=== PATIENT | female | born 1940 | race Caucasian/White ===

== ENCOUNTER 2019-10-09 12:41 | Emergency (ER) | payer MEDICARE, OTHER ==
[2019-10-09] MEDS ORDERED: Sodium Chloride 0.9% 1000 ML 1,000 ML IV SCH (13:15)
[2019-10-09 13:31] LABS: Absolute Neutrophil Ct (ANC) 2.59 (1.4-6.9); BASOPHIL % 0.2 % (0.0-0.4); Basophil (Absolute #) 0.01 (0-0.4); Eosinophil % 0.6 % (0.00-5.0); Eosinophil (Absolute #) 0.03 (0-0.5); Hematocrit 37.1 % (35-47); Hemoglobin 11.9 gm/dl (12.0-16.0); Lymphocyte (Absolute #) 1.58 (1.0-4.6); Lymphocytes % 33.9 % (24.0-44.0); Mean Cell Volume 97.6 fl (78-100); Mean Corpuscular Hemoglobin 31.3 pg (26-32); Mean Corpuscular Hgb Concent. 32.1 g/dl (32-36); Mean Platelet Volume 9.6 fl (7.5-11.0); Monocyte (Absolute #) 0.45 (0.0-1.3); Monocytes % 9.7 % (0.0-12.0); Neutrophil % 55.6 % (36.0-66.0); Platelet Count 243 K/mm3 (150-450); Red Cell Distribution Width 12.5 % (11.5-14.0); White Blood Count 4.7 K/mm3 (4.0-10.5)
[2019-10-09] MEDS ORDERED: Sodium Chloride 0.9% 1000 ML 1,000 ML ONE (13:37)
[2019-10-09 13:38] LABS: INR 1.04 (0.8-3.0); PROTIME 11.8 SECONDS (9.95-12.35)
[2019-10-09 13:42] LABS: ALBUMIN 4.3 g/dL (3.5-5.0); ALKALINE PHOSPHATASE 58 U/L (38-126); AMYLASE 86 U/L (30-110); ANION GAP 12.4 MEQ/L (5-15); BLOOD UREA NITROGEN 16 mg/dL (7-17); CHLORIDE 104 mmol/L (98-107); Calcium 9.7 mg/dL (8.4-10.2); Carbon Dioxide 28 mmol/L (22-30); Glucose 117 mg/dL (74-106); LIPASE 197 U/L (23-300); Potassium 4.4 mmol/L (3.5-5.1); SGOT/AST 39 U/L (14-36); SGPT/ALT 24 U/L (0-35); SODIUM 141 mmol/L (137-145); Total Protein 8.2 g/dL (6.3-8.2)
--- NOTE | 2019-10-09 13:55 | XRAY ---
Indication: Weakness, loss of appetite, and unwanted weight loss. Left breast cancer. Comparison: Chest exam June 24, 2018. 2 views of the abdomen demonstrates nonspecific nonobstructed bowel gas pattern. Solid organs unremarkable. Osseous structures intact with mild osteopenia, and mild multilevel lumbar degenerative spondylosis. Single frontal chest again demonstrates normal heart and lungs with incidental right hilar/right lung calcified granulomas. New right dual lead pacemaker without complications. Bony thorax intact again with mild osteopenia, degenerative changes, and left mastectomy. Impression: 1. Nonacute nonobstructed abdomen. 2. Nonacute 1 view chest with chronic features.
[2019-10-09 15:02] LABS: INFLUENZA A POSITIVE (NEGATIVE); INFLUENZA B NEGATIVE (NEGATIVE); RESPIRATORY SYNCTIAL VIRUS NEGATIVE (Negative)
[2019-10-09 15:10] LABS: Appearance CLEAR (CLEAR); Bacteria RARE /HPF (NEGATIVE); Bilirubin NEGATIVE (NEGATIVE); Blood SMALL Ery/ul (0-5); Glucose NEGATIVE (NEGATIVE); Ketones NEGATIVE (NEGATIVE); Leukocyte Esterase SMALL (NEGATIVE); Nitrite NEGATIVE (NEGATIVE); Protein,Urine Dip NEGATIVE (Negative); RBC 0-2 /HPF (0-2); Specific Gravity 1.006 (1.005-1.025); Urobilinogen NEGATIVE mg/dL (0-1)
--- NOTE | 2019-10-09 16:39 | XRAY ---
Indication: Weakness, loss of appetite, on wanted weight loss, and elevated d-dimer. Multiple contiguous axial images obtained through the chest using 80 cc of Isovue-370 contrast and PE protocol. Comparison: July 09, 2018. There is good opacification of the pulmonary arteries to include the lobar and segmental branches. Again no filling defect or pulmonary embolus. Heart is not enlarged. New right-sided dual lead pacemaker. Aorta is normal in course and caliber. Stable chunky mediastinal and right hilar calcified nodes. No pathologic mediastinal or hilar lymphadenopathy. Lungs again demonstrates right posterior gutter calcified granuloma. No suspicious pulmonary mass, infiltrate, or effusion. Bony thorax intact again with flowing osteophytes throughout the spine. Stable left mastectomy with intact breast implant. Limited upper abdomen again demonstrates fatty liver and hepatic/splenic calcified granulomas. Impression: 1. Again negative for pulmonary embolus. 2. New right-sided pacemaker/leads without complications. 3. No new/acute cardiopulmonary abnormalities. 4. Stable fatty liver and evidence for old granulomatous disease.
--- NOTE | 2019-10-09 17:04 | ERPHSYRPT ---
- History of Present Illness Time Seen by Provider: 10/09/19 13:00 Patient Subjective Stated Complaint: pt here for weakness, she has not felt well for a week, she has cough, loose stools, not eatng well Triage Nursing Assessment: pt alert, arrived per wc, assist of one to get to bed , abd soft, no edema noted Physician History: patient is a 79-year-old female who presents with a general complaint of weakness this started last week with a cough couple of loose stools she does have a pacemaker and a history of breast cancer but really him paucity of other symptoms. Timing/Duration: week(s) (1), sudden Severity: moderate Associated Symptoms: malaise, weakness Allergies/Adverse Reactions: No Known Drug Allergies Allergy (Verified 10/09/19 12:59) Home Medications: Buspirone HCl 5 mg BID 10/09/19 [History] Lisinopril [Prinivil] 5 mg DAILY 10/09/19 [History] Hx Influenza Vaccination/Date Given: Yes Hx Pneumococcal Vaccination/Date Given: No Immunizations Up to Date: Yes - Review of Systems Constitutional: Weakness, No Fever, No Chills Eyes: No Symptoms Ears, Nose, & Throat: No Symptoms Respiratory: No Cough, No Dyspnea Cardiac: No Chest Pain, No Edema, No Syncope Abdominal/Gastrointestinal: No Abdominal Pain, No Nausea, No Vomiting, No Diarrhea Genitourinary Symptoms: No Dysuria Musculoskeletal: No Back Pain, No Neck Pain Skin: No Rash Neurological: No Dizziness, No Focal Weakness, No Sensory Changes Psychological: No Symptoms Endocrine: No Symptoms All Other Systems: Reviewed and Negative - Past Medical History Pertinent Past Medical History: Yes Neurological History: No Pertinent History ENT History: No Pertinent History Cardiac History: No Pertinent History Respiratory History: No Pertinent History Endocrine Medical History: Other Musculoskeletal History: Osteoarthritis GI Medical History: No Pertinent History History: No Pertinent History Psycho-Social History: No Pertinent History Female Reproductive Disorders: No Pertinent History Other Medical History: KATELIN BREAST CANCER WITH LEFT MASTECTOMY. - Past Surgical History Past Surgical History: Yes Neuro Surgical History: No Pertinent History Cardiac: No Pertinent History Respiratory: No Pertinent History Gastrointestinal: No Pertinent History Genitourinary: No Pertinent History Musculoskeletal: No Pertinent History Female Surgical History: Lumpectomy, Mastectomy, Other Other Surgical History: cataract - Social History Smoking Status: Never smoker Exposure to second hand smoke: No Drug Use: none Patient Lives Alone: No - Female History Hx Last Menstrual Period: post Hx Now: No - Nursing Vital Signs Nursing Vital Signs: Initial Vital Signs Temperature 97.0 F 10/09/19 12:51 Pulse Rate 61 10/09/19 12:51 Respiratory Rate 16 10/09/19 12:51 Blood Pressure 143/77 10/09/19 12:51 O2 Sat by Pulse Oximetry 99 10/09/19 12:51 Pain Scale Pain Intensity 0 - Physical Exam General Appearance: mild distress, alert, lethargy Eye Exam: PERRL/EOMI, eyes nml inspection Ears, Nose, Throat Exam: normal ENT inspection, TMs normal, pharynx normal, moist mucous membranes Neck Exam: normal inspection, non-tender, supple, full range of motion Respiratory Exam: normal breath sounds, lungs clear, No respiratory distress Cardiovascular Exam: regular rate/rhythm, normal heart sounds, normal peripheral pulses Gastrointestinal/Abdomen Exam: soft, normal bowel sounds, No tenderness, No mass Back Exam: normal inspection, normal range of motion, No CVA tenderness, No vertebral tenderness Extremity Exam: normal inspection, normal range of motion, pelvis stable Neurologic Exam: alert, oriented x 3, cooperative, normal mood/affect, nml cerebellar function, nml station & gait, sensation nml, motor weakness, No motor deficits Skin Exam: normal color, warm, dry, No rash Lymphatic Exam: No adenopathy SpO2: 99 - Course EKG Interpreted by Me: Other (EKG is a paced rhythm) - CT Exams Chest CT Interpretation: Negative Ordered Tests: Active Orders 24 hr Category Date Time Status EKG-ER Only STAT Care 10/09/19 13:11 Active IV Insertion STAT Care 10/09/19 13:11 Active Orthostatic Vital Signs STAT Care 10/09/19 13:16 Active CHEST WITH CONTRAST [CT] Stat Exams 10/09/19 14:49 Completed OBSTR/ACUTE ABDOMEN SERIES Stat Exams 10/09/19 13:12 Completed AMYLASE Stat Lab 10/09/19 13:00 Completed BLOOD CULTURE Stat Lab 10/09/19 14:00 Received CBC W DIFF Stat Lab 10/09/19 13:00 Completed CMP Stat Lab 10/09/19 13:00 Completed CULTURE,URINE Stat Lab 10/09/19 14:56 Received D-DIMER QUANTITATIVE Stat Lab 10/09/19 13:00 Completed LIPASE Stat Lab 10/09/19 13:00 Completed Lactic Acid Stat Lab 10/09/19 13:24 Completed PROTIME WITH INR Stat Lab 10/09/19 13:00 Completed TROPONIN Q3H Lab 10/09/19 13:00 Completed TROPONIN Q3H Lab 10/09/19 16:25 Received TROPONIN Q3H Lab 10/09/19 19:15 Ordered TROPONIN Q3H Lab 10/09/19 22:15 Ordered TROPONIN Q3H Lab 10/10/19 01:15 Ordered UA W/RFX UR CULTURE Stat Lab 10/09/19 14:56 Completed Medication Summary Generic Name Dose Route Start Last Admin Trade Name Freq PRN Reason Stop Dose Admin Sodium Chloride 1,000 mls @ 100 mls/hr 10/09/19 13:15 10/09/19 13:39 Sodium Chloride 0.9% 1000 Ml IV 11/08/19 13:14 100 mls/hr .Q10H PRABHU Administration Lab/Rad Data: Laboratory Result Diagrams 10/09/19 13:00 10/09/19 13:00 Laboratory Results 10/09/19 10/09/19 10/09/19 Range/Units 14:56 14:00 13:24 WBC (4.0-10.5) K/mm3 RBC (4.1-5.4) M/mm3 Hgb (12.0-16.0) gm/dl Hct (35-47) % MCV (78-100) fl MCH (26-32) pg MCHC (32-36) g/dl RDW (11.5-14.0) % Plt Count (150-450) K/mm3 MPV (7.5-11.0) fl Gran % (36.0-66.0) % Eos # (Auto) (0-0.5) Absolute Lymphs (auto) (1.0-4.6) Absolute Monos (auto) (0.0-1.3) Lymphocytes % (24.0-44.0) % Monocytes % (0.0-12.0) % Eosinophils % (0.00-5.0) % Basophils % (0.0-0.4) % Absolute Granulocytes (1.4-6.9) Basophils # (0-0.4) PT (9.95-12.35) SECONDS INR (0.8-3.0) D-Dimer (215-500) ng/mL Sodium (137-145) mmol/L Potassium (3.5-5.1) mmol/L Chloride (98-107) mmol/L Carbon Dioxide (22-30) mmol/L Anion Gap (5-15) MEQ/L BUN (7-17) mg/dL Creatinine (0.52-1.04) mg/dL Estimated GFR ML/MIN Glucose (74-106) mg/dL Lactic Acid 0.8 (0.4-2.0) Calcium (8.4-10.2) mg/dL Total Bilirubin (0.2-1.3) mg/dL AST (14-36) U/L ALT (0-35) U/L Alkaline Phosphatase (38-126) U/L Troponin I (0.000-0.034) ng/mL Serum Total Protein (6.3-8.2) g/dL Albumin (3.5-5.0) g/dL Amylase (30-110) U/L Lipase (23-300) U/L Urine Color STRAW (YELLOW) Urine Appearance CLEAR (CLEAR) Urine pH 7.0 (5-6) Ur Specific [place] 1.006 (1.005-1.025) Urine Protein NEGATIVE (Negative) Urine Ketones NEGATIVE (NEGATIVE) Urine Blood SMALL (0-5) Aguilar/ul Urine Nitrite NEGATIVE (NEGATIVE) Urine Bilirubin NEGATIVE (NEGATIVE) Urine Urobilinogen NEGATIVE (0-1) mg/dL Ur Leukocyte Esterase SMALL (NEGATIVE) Urine WBC (Auto) 6-10 (0-5) /HPF Urine RBC (Auto) 0-2 (0-2) /HPF U Epithel Cells (Auto) NONE (FEW) /HPF Urine Bacteria (Auto) RARE (NEGATIVE) /HPF Urine Culture Reflexed ORDERED SEPARATELY (NO) Urine Glucose NEGATIVE (NEGATIVE) mg/dL Influenza Type A Ag POSITIVE (NEGATIVE) Influenza Type B Ag NEGATIVE (NEGATIVE) RSV (PCR) NEGATIVE (Negative) 10/09/19 10/09/19 10/09/19 Range/Units 13:00 13:00 13:00 WBC (4.0-10.5) K/mm3 RBC (4.1-5.4) M/mm3 Hgb (12.0-16.0) gm/dl Hct (35-47) % MCV (78-100) fl MCH (26-32) pg MCHC (32-36) g/dl RDW (11.5-14.0) % Plt Count (150-450) K/mm3 MPV (7.5-11.0) fl Gran % (36.0-66.0) % Eos # (Auto) (0-0.5) Absolute Lymphs (auto) (1.0-4.6) Absolute Monos (auto) (0.0-1.3) Lymphocytes % (24.0-44.0) % Monocytes % (0.0-12.0) % Eosinophils % (0.00-5.0) % Basophils % (0.0-0.4) % Absolute Granulocytes (1.4-6.9) Basophils # (0-0.4) PT 11.8 (9.95-12.35) SECONDS INR 1.04 (0.8-3.0) D-Dimer 651 H* (215-500) ng/mL Sodium 141 (137-145) mmol/L Potassium 4.4 (3.5-5.1) mmol/L Chloride 104 (98-107) mmol/L Carbon Dioxide 28 (22-30) mmol/L Anion Gap 12.4 (5-15) MEQ/L BUN 16 (7-17) mg/dL Creatinine 0.80 (0.52-1.04) mg/dL Estimated GFR > 60.0 ML/MIN Glucose 117 H (74-106) mg/dL Lactic Acid (0.4-2.0) Calcium 9.7 (8.4-10.2) mg/dL Total Bilirubin 0.70 (0.2-1.3) mg/dL AST 39 H (14-36) U/L ALT 24 (0-35) U/L Alkaline Phosphatase 58 (38-126) U/L Troponin I < 0.012 (0.000-0.034) ng/mL Serum Total Protein 8.2 (6.3-8.2) g/dL Albumin 4.3 (3.5-5.0) g/dL Amylase 86 (30-110) U/L Lipase 197 (23-300) U/L Urine Color (YELLOW) Urine Appearance (CLEAR) Urine pH (5-6) Ur Specific [place] (1.005-1.025) Urine Protein (Negative) Urine Ketones (NEGATIVE) Urine Blood (0-5) Aguilar/ul Urine Nitrite (NEGATIVE) Urine Bilirubin (NEGATIVE) Urine Urobilinogen (0-1) mg/dL Ur Leukocyte Esterase (NEGATIVE) Urine WBC (Auto) (0-5) /HPF Urine RBC (Auto) (0-2) /HPF U Epithel Cells (Auto) (FEW) /HPF Urine Bacteria (Auto) (NEGATIVE) /HPF Urine Culture Reflexed (NO) Urine Glucose (NEGATIVE) mg/dL Influenza Type A Ag (NEGATIVE) Influenza Type B Ag (NEGATIVE) RSV (PCR) (Negative) 10/09/19 Range/Units 13:00 WBC 4.7 (4.0-10.5) K/mm3 RBC 3.80 L (4.1-5.4) M/mm3 Hgb 11.9 L (12.0-16.0) gm/dl Hct 37.1 (35-47) % MCV 97.6 (78-100) fl MCH 31.3 (26-32) pg MCHC 32.1 (32-36) g/dl RDW 12.5 (11.5-14.0) % Plt Count 243 (150-450) K/mm3 MPV 9.6 H (7.5-11.0) fl Gran % 55.6 (36.0-66.0) % Eos # (Auto) 0.03 (0-0.5) Absolute Lymphs (auto) 1.58 (1.0-4.6) Absolute Monos (auto) 0.45 (0.0-1.3) Lymphocytes % 33.9 (24.0-44.0) % Monocytes % 9.7 (0.0-12.0) % Eosinophils % 0.6 (0.00-5.0) % Basophils % 0.2 (0.0-0.4) % Absolute Granulocytes 2.59 (1.4-6.9) Basophils # 0.01 (0-0.4) PT (9.95-12.35) SECONDS INR (0.8-3.0) D-Dimer (215-500) ng/mL Sodium (137-145) mmol/L Potassium (3.5-5.1) mmol/L Chloride (98-107) mmol/L Carbon Dioxide (22-30) mmol/L Anion Gap (5-15) MEQ/L BUN (7-17) mg/dL Creatinine (0.52-1.04) mg/dL Estimated GFR ML/MIN Glucose (74-106) mg/dL Lactic Acid (0.4-2.0) Calcium (8.4-10.2) mg/dL Total Bilirubin (0.2-1.3) mg/dL AST (14-36) U/L ALT (0-35) U/L Alkaline Phosphatase (38-126) U/L Troponin I (0.000-0.034) ng/mL Serum Total Protein (6.3-8.2) g/dL Albumin (3.5-5.0) g/dL Amylase (30-110) U/L Lipase (23-300) U/L Urine Color (YELLOW) Urine Appearance (CLEAR) Urine pH (5-6) Ur Specific [place] (1.005-1.025) Urine Protein (Negative) Urine Ketones (NEGATIVE) Urine Blood (0-5) Aguilar/ul Urine Nitrite (NEGATIVE) Urine Bilirubin (NEGATIVE) Urine Urobilinogen (0-1) mg/dL Ur Leukocyte Esterase (NEGATIVE) Urine WBC (Auto) (0-5) /HPF Urine RBC (Auto) (0-2) /HPF U Epithel Cells (Auto) (FEW) /HPF Urine Bacteria (Auto) (NEGATIVE) /HPF Urine Culture Reflexed (NO) Urine Glucose (NEGATIVE) mg/dL Influenza Type A Ag (NEGATIVE) Influenza Type B Ag (NEGATIVE) RSV (PCR) (Negative) - Progress Progress: unchanged - Departure Departure Disposition: Home Clinical Impression: Influenza A Condition: Stable Critical Care Time: No Referrals: JORGE THORNTON [Primary Care Provider] - Prescriptions: Oseltamivir 75 mg [Tamiflu 75MG Capsule] 75 mg PO BID #10 cap
[2019-10-09 17:12] VITALS: BP 166/74; O2SAT 98
[2019-10-09 17:24] VITALS: PULSE 80
== END 2019-10-09 17:22 | disposition home or self-care (01) ==
LOC: ED 12:41
DX: J09.X2 Influenza due to identified novel influenza A virus with other respiratory manifestations (principal); Z95.0 Presence of cardiac pacemaker; Z79.899 Other long term (current) drug therapy
CPT/HCPCS: 36000; 36415; 71260; 74022; 80053; 81001; 82150; 83605; 83690; 84484; 85025; 85379; 85610; 87040; 87086; 87631; 93005; 96360; 96374; 99284

== ENCOUNTER 2019-10-12 11:19 | Observation (INO) | payer MEDICARE, OTHER ==
--- NOTE | 2019-10-12 11:23 | ERPHSYRPT ---
- History of Present Illness Time Seen by Provider: 10/12/19 11:23 Source: patient, family Exam Limitations: no limitations Physician History: 79 y/o white female dx 3 days ago with influenza a. since that dx, pt has complained of weakness. no n/v/d. denies cough. denies fever. no abd pain, no soa, no cp. pt not eating or drinking well. Timing/Duration: day(s) (3) Cough Quality/Degree: no cough Possible Cause: no prior episodes Associated Symptoms: No chest pain/soreness, No cough, No dizziness, No headache , No lightheadedness, No muscle aches, No shortness of breath Allergies/Adverse Reactions: No Known Drug Allergies Allergy (Verified 10/09/19 12:59) Home Medications: Buspirone HCl 5 mg BID 10/09/19 [History] lisinopriL [Prinivil] 5 mg PO DAILY 10/09/19 [History] Hx Influenza Vaccination/Date Given: Yes Hx Pneumococcal Vaccination/Date Given: No - Review of Systems Constitutional: Weakness Eyes: No Symptoms Ears, Nose, & Throat: No Symptoms Respiratory: No Symptoms Cardiac: No Symptoms Abdominal/Gastrointestinal: No Symptoms Genitourinary Symptoms: No Symptoms Musculoskeletal: No Symptoms Neurological: No Symptoms Psychological: No Symptoms Endocrine: No Symptoms Hematologic/Lymphatic: No Symptoms Immunological/Allergic: No Symptoms All Other Systems: Reviewed and Negative - Past Medical History Pertinent Past Medical History: Yes Neurological History: No Pertinent History ENT History: No Pertinent History Cardiac History: No Pertinent History Respiratory History: No Pertinent History Endocrine Medical History: Other Musculoskeletal History: Osteoarthritis GI Medical History: No Pertinent History History: No Pertinent History Psycho-Social History: No Pertinent History Female Reproductive Disorders: No Pertinent History Other Medical History: KATELIN BREAST CANCER WITH LEFT MASTECTOMY. - Past Surgical History Past Surgical History: Yes Neuro Surgical History: No Pertinent History Cardiac: No Pertinent History Respiratory: No Pertinent History Gastrointestinal: No Pertinent History Genitourinary: No Pertinent History Musculoskeletal: No Pertinent History Female Surgical History: Lumpectomy, Mastectomy, Other Other Surgical History: cataract - Social History Smoking Status: Never smoker Exposure to second hand smoke: No Drug Use: none Patient Lives Alone: No - Nursing Vital Signs Nursing Vital Signs: Initial Vital Signs Temperature 97.7 F 10/12/19 11:43 Pulse Rate 68 01/06/20 11:43 Respiratory Rate 18 10/12/19 11:43 Blood Pressure 170/75 10/12/19 11:43 O2 Sat by Pulse Oximetry 98 10/12/19 11:43 Pain Scale Pain Intensity 0 - Physical Exam General Appearance: no apparent distress, alert, anxiety Eye Exam: PERRL/EOMI, eyes nml inspection Ears, Nose, Throat Exam: dry mucous membranes Neck Exam: normal inspection, non-tender, supple, full range of motion Respiratory Exam: normal breath sounds, lungs clear, airway intact, No chest tenderness, No respiratory distress Cardiovascular Exam: regular rate/rhythm, normal heart sounds, normal peripheral pulses Gastrointestinal/Abdomen Exam: soft, normal bowel sounds, No tenderness Pelvic Exam: not done Rectal Exam: not done Extremity Exam: normal inspection, normal range of motion, No pelvis stable Neurologic Exam: alert, oriented x 3, cooperative, mailroom associate II-XII nml as tested Skin Exam: normal color, warm, dry Lymphatic Exam: No adenopathy SpO2 Interpretation: normal O2 Delivery: Room Air - Course Nursing assessment & vital signs reviewed: Yes Ordered Tests: Active Orders 24 hr Category Date Time Status IV Insertion STAT Care 10/12/19 12:01 Active AMYLASE Stat Lab 10/12/19 12:09 Completed CBC W DIFF Stat Lab 10/12/19 12:09 Completed CMP Stat Lab 10/12/19 12:09 Completed LIPASE Stat Lab 10/12/19 12:09 Completed Lactic Acid Stat Lab 10/12/19 12:10 Completed [place] Screen Stat Lab 10/12/19 12:09 Completed UA W/RFX UR CULTURE Stat Lab 10/12/19 12:02 Completed Transfer Order Routine Transfer 10/12/19 Ordered Medication Summary Discontinued Medications Generic Name Dose Route Start Last Admin Trade Name Citlali PRN Reason Stop Dose Admin Sodium Chloride 1,000 mls @ 999 mls/hr 10/12/19 12:01 10/12/19 13:23 Sodium Chloride 0.9% 1000 Ml IV 10/12/19 13:01 Infused .Q1H1M STA Infusion Sodium Chloride Confirm 10/12/19 12:05 Sodium Chloride 0.9% 1000 Ml Administered 10/12/19 12:06 Dose 1,000 mls @ ud .ROUTE .STK-MED ONE Lab/Rad Data: Laboratory Result Diagrams 10/12/19 12:09 10/12/19 12:09 Laboratory Results 10/12/19 10/12/19 10/12/19 Range/Units 12:10 12:09 12:09 WBC (4.0-10.5) K/mm3 RBC (4.1-5.4) M/mm3 Hgb (12.0-16.0) gm/dl Hct (35-47) % MCV (78-100) fl MCH (26-32) pg MCHC (32-36) g/dl RDW (11.5-14.0) % Plt Count (150-450) K/mm3 MPV (7.5-11.0) fl Gran % (36.0-66.0) % Eos # (Auto) (0-0.5) Absolute Lymphs (auto) (1.0-4.6) Absolute Monos (auto) (0.0-1.3) Lymphocytes % (24.0-44.0) % Monocytes % (0.0-12.0) % Eosinophils % (0.00-5.0) % Basophils % (0.0-0.4) % Absolute Granulocytes (1.4-6.9) Basophils # (0-0.4) Sodium 140 (137-145) mmol/L Potassium 4.4 (3.5-5.1) mmol/L Chloride 103 (98-107) mmol/L Carbon Dioxide 30 (22-30) mmol/L Anion Gap 11.1 (5-15) MEQ/L BUN 15 (7-17) mg/dL Creatinine 0.86 (0.52-1.04) mg/dL Estimated GFR > 60.0 ML/MIN Glucose 116 H (74-106) mg/dL Lactic Acid 0.9 (0.4-2.0) Calcium 10.3 H (8.4-10.2) mg/dL Total Bilirubin 0.80 (0.2-1.3) mg/dL AST 39 H (14-36) U/L ALT 20 (0-35) U/L Alkaline Phosphatase 70 (38-126) U/L Serum Total Protein 8.8 H (6.3-8.2) g/dL Albumin 4.7 (3.5-5.0) g/dL Amylase 103 (30-110) U/L Lipase 174 (23-300) U/L Urine Color (YELLOW) Urine Appearance (CLEAR) Urine pH (5-6) Ur Specific [place] (1.005-1.025) Urine Protein (Negative) Urine Ketones (NEGATIVE) Urine Blood (0-5) Aguilar/ul Urine Nitrite (NEGATIVE) Urine Bilirubin (NEGATIVE) Urine Urobilinogen (0-1) mg/dL Ur Leukocyte Esterase (NEGATIVE) Urine WBC (Auto) (0-5) /HPF Urine RBC (Auto) (0-2) /HPF U Epithel Cells (Auto) (FEW) /HPF Urine Bacteria (Auto) (NEGATIVE) /HPF Urine Culture Reflexed (NO) Urine Glucose (NEGATIVE) mg/dL Monoscreen NEGATIVE (Negative) 10/12/19 10/12/19 Range/Units 12:09 12:02 WBC 6.9 (4.0-10.5) K/mm3 RBC 3.92 L (4.1-5.4) M/mm3 Hgb 12.2 (12.0-16.0) gm/dl Hct 37.8 (35-47) % MCV 96.4 (78-100) fl MCH 31.1 (26-32) pg MCHC 23.3 L (32-36) g/dl RDW 12.4 (11.5-14.0) % Plt Count 351 (150-450) K/mm3 MPV 9.5 (7.5-11.0) fl Gran % 71.0 H (36.0-66.0) % Eos # (Auto) 0.05 (0-0.5) Absolute Lymphs (auto) 1.44 (1.0-4.6) Absolute Monos (auto) 0.52 (0.0-1.3) Lymphocytes % 20.7 L (24.0-44.0) % Monocytes % 7.5 (0.0-12.0) % Eosinophils % 0.7 (0.00-5.0) % Basophils % 0.1 (0.0-0.4) % Absolute Granulocytes 4.92 (1.4-6.9) Basophils # 0.01 (0-0.4) Sodium (137-145) mmol/L Potassium (3.5-5.1) mmol/L Chloride (98-107) mmol/L Carbon Dioxide (22-30) mmol/L Anion Gap (5-15) MEQ/L BUN (7-17) mg/dL Creatinine (0.52-1.04) mg/dL Estimated GFR ML/MIN Glucose (74-106) mg/dL Lactic Acid (0.4-2.0) Calcium (8.4-10.2) mg/dL Total Bilirubin (0.2-1.3) mg/dL AST (14-36) U/L ALT (0-35) U/L Alkaline Phosphatase (38-126) U/L Serum Total Protein (6.3-8.2) g/dL Albumin (3.5-5.0) g/dL Amylase (30-110) U/L Lipase (23-300) U/L Urine Color YELLOW (YELLOW) Urine Appearance CLEAR (CLEAR) Urine pH 6.0 (5-6) Ur Specific [place] 1.008 (1.005-1.025) Urine Protein NEGATIVE (Negative) Urine Ketones NEGATIVE (NEGATIVE) Urine Blood SMALL (0-5) Aguilar/ul Urine Nitrite NEGATIVE (NEGATIVE) Urine Bilirubin NEGATIVE (NEGATIVE) Urine Urobilinogen NEGATIVE (0-1) mg/dL Ur Leukocyte Esterase NEGATIVE (NEGATIVE) Urine WBC (Auto) 0-2 (0-5) /HPF Urine RBC (Auto) 0-2 (0-2) /HPF U Epithel Cells (Auto) NONE (FEW) /HPF Urine Bacteria (Auto) NONE (NEGATIVE) /HPF Urine Culture Reflexed NO (NO) Urine Glucose NEGATIVE (NEGATIVE) mg/dL Monoscreen (Negative) - Progress Progress: improved Air Movement: good Progress Note: 10/12/19 13:[address] givens. i reviewed pts hx, condition, lab results. place in obs. ivf recheck labs in morning Blood Culture(s) Obtained: No Antibiotics given: No Counseled pt/family regarding: lab results, diagnosis - Departure Departure Disposition: Home Clinical Impression: Weakness, Influenza A Condition: Stable Critical Care Time: No Referrals: JORGE GIVENS [Primary Care Provider] -
[2019-10-12] MEDS ORDERED: Sodium Chloride 0.9% 1000 ML 1,000 ML IV STA (12:01)
[2019-10-12] MEDS ORDERED: Sodium Chloride 0.9% 1000 ML 1,000 ML ONE (12:05)
[2019-10-12 12:29] LABS: ALBUMIN 4.7 g/dL (3.5-5.0); ALKALINE PHOSPHATASE 70 U/L (38-126); AMYLASE 103 U/L (30-110); ANION GAP 11.1 MEQ/L (5-15); BLOOD UREA NITROGEN 15 mg/dL (7-17); CHLORIDE 103 mmol/L (98-107); Calcium 10.3 mg/dL (8.4-10.2); Carbon Dioxide 30 mmol/L (22-30); Creatinine 1 0.86 mg/dL (0.52-1.04); Glucose 116 mg/dL (74-106); LIPASE 174 U/L (23-300); Potassium 4.4 mmol/L (3.5-5.1); SGOT/AST 39 U/L (14-36); SGPT/ALT 20 U/L (0-35); SODIUM 140 mmol/L (137-145); Total Protein 8.8 g/dL (6.3-8.2)
[2019-10-12 12:41] LABS: Hematocrit 37.8 % (35-47); Hemoglobin 12.2 gm/dl (12.0-16.0); Mean Cell Volume 96.4 fl (78-100); Mean Corpuscular Hemoglobin 31.1 pg (26-32); Mean Corpuscular Hgb Concent. 23.3 g/dl (32-36); Platelet Count 351 K/mm3 (150-450); Red Blood Count 3.92 M/mm3 (4.1-5.4); Red Cell Distribution Width 12.4 % (11.5-14.0); White Blood Count 6.9 K/mm3 (4.0-10.5)
[2019-10-12 12:42] LABS: Absolute Neutrophil Ct (ANC) 4.92 (1.4-6.9); BASOPHIL % 0.1 % (0.0-0.4); Basophil (Absolute #) 0.01 (0-0.4); Eosinophil % 0.7 % (0.00-5.0); Eosinophil (Absolute #) 0.05 (0-0.5); Lymphocyte (Absolute #) 1.44 (1.0-4.6); Lymphocytes % 20.7 % (24.0-44.0); Mean Platelet Volume 9.5 fl (7.5-11.0); Monocyte (Absolute #) 0.52 (0.0-1.3); Monocytes % 7.5 % (0.0-12.0)
[2019-10-12 13:06] LABS: Appearance CLEAR (CLEAR); Bilirubin NEGATIVE (NEGATIVE); Blood SMALL Ery/ul (0-5); Glucose NEGATIVE (NEGATIVE); Ketones NEGATIVE (NEGATIVE); Leukocyte Esterase NEGATIVE (NEGATIVE); Nitrite NEGATIVE (NEGATIVE); Protein,Urine Dip NEGATIVE (Negative); RBC 0-2 /HPF (0-2); Specific Gravity 1.008 (1.005-1.025); Urobilinogen NEGATIVE mg/dL (0-1); WBC 0-2 /HPF (0-5)
[2019-10-12] MEDS ORDERED: Zofran 4 MG/2 ML VIAL IV PRN (14:56)
[2019-10-12] MEDS ORDERED: TYLENOL 325 MG PO PRN (14:56)
[2019-10-12] MEDS: Sodium Chloride 0.9% 1000 ML 1,000 ML IV SCH (15:34)
[2019-10-13 05:51] LABS: Absolute Neutrophil Ct (ANC) 4.49 (1.4-6.9); BASOPHIL % 0.1 % (0.0-0.4); Basophil (Absolute #) 0.01 (0-0.4); Eosinophil (Absolute #) 0.07 (0-0.5); Hematocrit 31.3 % (35-47); Hemoglobin 10.1 gm/dl (12.0-16.0); Lymphocyte (Absolute #) 1.58 (1.0-4.6); Lymphocytes % 23.2 % (24.0-44.0); Mean Cell Volume 97.2 fl (78-100); Mean Corpuscular Hemoglobin 31.4 pg (26-32); Mean Corpuscular Hgb Concent. 32.3 g/dl (32-36); Mean Platelet Volume 9.5 fl (7.5-11.0); Monocyte (Absolute #) 0.67 (0.0-1.3); Monocytes % 9.8 % (0.0-12.0); Neutrophil % 65.9 % (36.0-66.0); Platelet Count 285 K/mm3 (150-450); Red Blood Count 3.22 M/mm3 (4.1-5.4); Red Cell Distribution Width 12.3 % (11.5-14.0); White Blood Count 6.8 K/mm3 (4.0-10.5)
[2019-10-13 06:07] LABS: ANION GAP 8.7 MEQ/L (5-15); BLOOD UREA NITROGEN 11 mg/dL (7-17); CHLORIDE 107 mmol/L (98-107); Calcium 9.4 mg/dL (8.4-10.2); Carbon Dioxide 27 mmol/L (22-30); Creatinine 1 0.72 mg/dL (0.52-1.04); Glucose 90 mg/dL (74-106); Potassium 3.6 mmol/L (3.5-5.1); SODIUM 139 mmol/L (137-145)
[2019-10-13] MEDS: Zestril 5 MG PO SCH (08:39)
[2019-10-13] MEDS: BUSPAR 5 MG PO SCH ×2 (08:39→20:38)
[2019-10-13] MEDS: Sodium Chloride 0.9% 1000 ML 1,000 ML IV SCH (08:40)
--- NOTE | 2019-10-13 08:56 | PCM.HP ---
History of Present Illness - Chief Complaint Chief Complaint: Weakness, influenza A History of Present Illness: is a 79 year old female pt of mine from [facility] with anxiety, HTN, hyperlipidemia, pacemaker, OA, hx breast cancer, and renal insufficiency who was admitted through the ER with flu A (diagnosed on 10/09/19 in ER) and weakness. Pt is a poor historian. She told me she became ill with the flu on Oct 01, never felt well after that, wasn't eating well at home and was weak. Denies having cough or fever; ROS is neg aside from weakness and some depression this week with feeling ill. She tells me she's feeling better this morning, eating well, and thinks she can go home. Per her chart, she was in the ER on 10/09/19 and tested positive for Flu A. KUB was non acute as was CTA of the chest (neg for PE as well). Family had called yesterday to say that pt was "lifeless" and unable to get out of bed by herself. Has not been eating well at home. Was brought to ER where labs were nonacute. UA nl, WBC nl, potassium and CO2 normal. CXR was not repeated yesterday. - Review of Systems Constitutional: Weakness, Weight Loss Psychological: Depression (over the past 1 wk) All Other Systems: Reviewed and Negative Medications & Allergies Home Medications: Home Medication List Buspirone HCl 10 mg PO BID 10/09/19 [History Confirmed 10/12/19] lisinopriL [Prinivil] 2.5 mg PO DAILY 10/09/19 [History Confirmed 10/12/19] Allergies/Adverse Reactions: Allergies Allergy/AdvReac Type Severity Reaction Status Date / Time No Known Drug Allergies Allergy Verified 10/12/19 15:06 - Past Medical History Past Medical History: Yes Neurological History: No Pertinent History ENT History: Cataracts Cardiac History: Hypertension Respiratory History: No Pertinent History Endocrine Medical History: Other Musculoskelatal History: Osteoarthritis GI Medical History: No Pertinent History History: No Pertinent History Pyscho-Social History: No Pertinent History Reproductive Disorders: Breast Cancer Comment: KATELIN BREAST CANCER WITH LEFT MASTECTOMY. - Female History Are you now?: No - Past Surgical History Past Surgical History: Yes Neuro Surgical History: No Pertinent History Cardiac History: Pacemaker Respiratory Surgery: No Pertinent History GI Surgical History: No Pertinent History Genitourinary Surgical Hx: No Pertinent History Musculskeletal Surgical Hx: No Pertinent History Female Surgical History: Lumpectomy, Mastectomy, Other Other Surgical History: cataract - Social History Smoking Status: Never smoker Exposure to second hand smoke: No Alcohol: None Drug Use: none - Physical Exam Vital Signs: Vital Signs - 24 hr Temp Pulse Resp BP Pulse Ox 10/13/19 07:37 98 F 86 20 166/81 95 10/13/19 07:35 18 10/13/19 04:00 97.4 F 70 20 170/76 98 10/13/19 00:00 97.2 F 67 18 176/80 99 10/12/19 23:59 20 10/12/19 20:00 98.4 F 68 20 182/86 98 10/12/19 16:00 96.9 F 67 18 158/69 98 10/12/19 15:11 96.9 F 67 18 158/69 98 10/12/19 14:04 66 18 149/74 96 10/12/19 11:43 97.7 F 68 18 170/75 98 General Appearance: no apparent distress, alert Neurologic Exam: cooperative Eye Exam: eyes nml inspection Ears, Nose, Throat Exam: moist mucous membranes Neck Exam: normal inspection, non-tender, No lymphadenopathy Respiratory Exam: normal breath sounds, lungs clear, No crackles/rales, No rhonchi, No wheezing Cardiovascular Exam: regular rate/rhythm, normal heart sounds, No murmur Gastrointestinal/Abdomen Exam: soft, normal bowel sounds, No tenderness, No distention, No mass, No guarding, No rebound Back Exam: normal inspection, No rash Extremity Exam: normal inspection, No pedal edema, No swelling Skin Exam: normal color, warm, dry, No rash Results - Labs Lab/Micro Results: Lab Results-Last 24 Hours 10/12/19 10/12/19 10/12/19 Range/Units 12:02 12:09 12:09 WBC 6.9 (4.0-10.5) K/mm3 RBC 3.92 L (4.1-5.4) M/mm3 Hgb 12.2 (12.0-16.0) gm/dl Hct 37.8 (35-47) % MCV 96.4 (78-100) fl MCH 31.1 (26-32) pg MCHC 23.3 L (32-36) g/dl RDW 12.4 (11.5-14.0) % Plt Count 351 (150-450) K/mm3 MPV 9.5 (7.5-11.0) fl Gran % 71.0 H (36.0-66.0) % Eos # (Auto) 0.05 (0-0.5) Absolute Lymphs (auto) 1.44 (1.0-4.6) Absolute Monos (auto) 0.52 (0.0-1.3) Lymphocytes % 20.7 L (24.0-44.0) % Monocytes % 7.5 (0.0-12.0) % Eosinophils % 0.7 (0.00-5.0) % Basophils % 0.1 (0.0-0.4) % Absolute Granulocytes 4.92 (1.4-6.9) Basophils # 0.01 (0-0.4) Sodium 140 (137-145) mmol/L Potassium 4.4 (3.5-5.1) mmol/L Chloride 103 (98-107) mmol/L Carbon Dioxide 30 (22-30) mmol/L Anion Gap 11.1 (5-15) MEQ/L BUN 15 (7-17) mg/dL Creatinine 0.86 (0.52-1.04) mg/dL Estimated GFR > 60.0 ML/MIN Glucose 116 H (74-106) mg/dL Lactic Acid (0.4-2.0) Calcium 10.3 H (8.4-10.2) mg/dL Total Bilirubin 0.80 (0.2-1.3) mg/dL AST 39 H (14-36) U/L ALT 20 (0-35) U/L Alkaline Phosphatase 70 (38-126) U/L Serum Total Protein 8.8 H (6.3-8.2) g/dL Albumin 4.7 (3.5-5.0) g/dL Amylase 103 (30-110) U/L Lipase 174 (23-300) U/L Urine Color YELLOW (YELLOW) Urine Appearance CLEAR (CLEAR) Urine pH 6.0 (5-6) Ur Specific [place] 1.008 (1.005-1.025) Urine Protein NEGATIVE (Negative) Urine Ketones NEGATIVE (NEGATIVE) Urine Blood SMALL (0-5) Aguilar/ul Urine Nitrite NEGATIVE (NEGATIVE) Urine Bilirubin NEGATIVE (NEGATIVE) Urine Urobilinogen NEGATIVE (0-1) mg/dL Ur Leukocyte Esterase NEGATIVE (NEGATIVE) Urine WBC (Auto) 0-2 (0-5) /HPF Urine RBC (Auto) 0-2 (0-2) /HPF U Epithel Cells (Auto) NONE (FEW) /HPF Urine Bacteria (Auto) NONE (NEGATIVE) /HPF Urine Culture Reflexed NO (NO) Urine Glucose NEGATIVE (NEGATIVE) mg/dL Monoscreen (Negative) 10/12/19 10/12/19 10/13/19 Range/Units 12:09 12:10 04:50 WBC 6.8 (4.0-10.5) K/mm3 RBC 3.22 L (4.1-5.4) M/mm3 Hgb 10.1 L (12.0-16.0) gm/dl Hct 31.3 L (35-47) % MCV 97.2 (78-100) fl MCH 31.4 (26-32) pg MCHC 32.3 (32-36) g/dl RDW 12.3 (11.5-14.0) % Plt Count 285 (150-450) K/mm3 MPV 9.5 (7.5-11.0) fl Gran % 65.9 (36.0-66.0) % Eos # (Auto) 0.07 (0-0.5) Absolute Lymphs (auto) 1.58 (1.0-4.6) Absolute Monos (auto) 0.67 (0.0-1.3) Lymphocytes % 23.2 L (24.0-44.0) % Monocytes % 9.8 (0.0-12.0) % Eosinophils % 1.0 (0.00-5.0) % Basophils % 0.1 (0.0-0.4) % Absolute Granulocytes 4.49 (1.4-6.9) Basophils # 0.01 (0-0.4) Sodium (137-145) mmol/L Potassium (3.5-5.1) mmol/L Chloride (98-107) mmol/L Carbon Dioxide (22-30) mmol/L Anion Gap (5-15) MEQ/L BUN (7-17) mg/dL Creatinine (0.52-1.04) mg/dL Estimated GFR ML/MIN Glucose (74-106) mg/dL Lactic Acid 0.9 (0.4-2.0) Calcium (8.4-10.2) mg/dL Total Bilirubin (0.2-1.3) mg/dL AST (14-36) U/L ALT (0-35) U/L Alkaline Phosphatase (38-126) U/L Serum Total Protein (6.3-8.2) g/dL Albumin (3.5-5.0) g/dL Amylase (30-110) U/L Lipase (23-300) U/L Urine Color (YELLOW) Urine Appearance (CLEAR) Urine pH (5-6) Ur Specific [place] (1.005-1.025) Urine Protein (Negative) Urine Ketones (NEGATIVE) Urine Blood (0-5) Aguilar/ul Urine Nitrite (NEGATIVE) Urine Bilirubin (NEGATIVE) Urine Urobilinogen (0-1) mg/dL Ur Leukocyte Esterase (NEGATIVE) Urine WBC (Auto) (0-5) /HPF Urine RBC (Auto) (0-2) /HPF U Epithel Cells (Auto) (FEW) /HPF Urine Bacteria (Auto) (NEGATIVE) /HPF Urine Culture Reflexed (NO) Urine Glucose (NEGATIVE) mg/dL Monoscreen NEGATIVE (Negative) 10/13/19 Range/Units 04:50 WBC (4.0-10.5) K/mm3 RBC (4.1-5.4) M/mm3 Hgb (12.0-16.0) gm/dl Hct (35-47) % MCV (78-100) fl MCH (26-32) pg MCHC (32-36) g/dl RDW (11.5-14.0) % Plt Count (150-450) K/mm3 MPV (7.5-11.0) fl Gran % (36.0-66.0) % Eos # (Auto) (0-0.5) Absolute Lymphs (auto) (1.0-4.6) Absolute Monos (auto) (0.0-1.3) Lymphocytes % (24.0-44.0) % Monocytes % (0.0-12.0) % Eosinophils % (0.00-5.0) % Basophils % (0.0-0.4) % Absolute Granulocytes (1.4-6.9) Basophils # (0-0.4) Sodium 139 (137-145) mmol/L Potassium 3.6 (3.5-5.1) mmol/L Chloride 107 (98-107) mmol/L Carbon Dioxide 27 (22-30) mmol/L Anion Gap 8.7 (5-15) MEQ/L BUN 11 (7-17) mg/dL Creatinine 0.72 (0.52-1.04) mg/dL Estimated GFR > 60.0 ML/MIN Glucose 90 (74-106) mg/dL Lactic Acid (0.4-2.0) Calcium 9.4 (8.4-10.2) mg/dL Total Bilirubin (0.2-1.3) mg/dL AST (14-36) U/L ALT (0-35) U/L Alkaline Phosphatase (38-126) U/L Serum Total Protein (6.3-8.2) g/dL Albumin (3.5-5.0) g/dL Amylase (30-110) U/L Lipase (23-300) U/L Urine Color (YELLOW) Urine Appearance (CLEAR) Urine pH (5-6) Ur Specific [place] (1.005-1.025) Urine Protein (Negative) Urine Ketones (NEGATIVE) Urine Blood (0-5) Aguilar/ul Urine Nitrite (NEGATIVE) Urine Bilirubin (NEGATIVE) Urine Urobilinogen (0-1) mg/dL Ur Leukocyte Esterase (NEGATIVE) Urine WBC (Auto) (0-5) /HPF Urine RBC (Auto) (0-2) /HPF U Epithel Cells (Auto) (FEW) /HPF Urine Bacteria (Auto) (NEGATIVE) /HPF Urine Culture Reflexed (NO) Urine Glucose (NEGATIVE) mg/dL Monoscreen (Negative) - Radiology Impressions Radiology Exams & Impressions: Radiology Procedures Category Date Time Status CHEST 2 VIEWS (PA AND LAT) Routine Exams 10/13/19 Ordered Assessment/Plan (1) Weakness Current Visit: Yes Status: Acute Assessment & Plan: PT to consult today. Labs are good. Pt is eating breakfast this morning. Will need to demonstrate increased strength and ability to do ADLs prior to discharge. Currently 1 assist in going to bathroom. Code(s): R53.1 - WEAKNESS (2) Influenza A Current Visit: Yes Status: Acute Assessment & Plan: recheck cxr Code(s): J10.1 - FLU DUE TO OTH IDENT INFLUENZA VIRUS W OTH RESP MANIFEST (3) Hypertension Current Visit: Yes Status: Acute Qualifiers: Hypertension type: essential hypertension Qualified Code(s): I10 - Essential (primary) hypertension Assessment & Plan: resume home meds Code(s): I10 - ESSENTIAL (PRIMARY) HYPERTENSION
[2019-10-13] MEDS ORDERED: APRESOLINE 20 MG/ML INJ IV PRN (09:07)
--- NOTE | 2019-10-13 09:12 | XRAY ---
Indication: Weakness. Fluid. Comparison: October 09, 2019. PA/lateral chest unchanged and remains clear. Heart is not enlarged again with mediastinal/hilar calcified nodes and right dual-lead pacemaker. No new/acute findings.
[2019-10-13] MEDS ORDERED: Ativan 1 MG PO PRN (20:31)
[2019-10-14 02:00] VITALS: O2SAT 97
[2019-10-14] MEDS: Sodium Chloride 0.9% 1000 ML 1,000 ML IV SCH (03:48)
[2019-10-14 08:42] VITALS: BP 128/60; PULSE 60
--- NOTE | 2019-10-14 08:52 | PCM.DS ---
Discharge Summary Date of Admission: 10/12/19 14:44 Admitting Physician: JORGE THORNTON Primary Care Provider: JORGE THORNTON Allergies Allergies No Known Drug Allergies Allergy (Verified 10/12/19 15:06) Hospital Summary - Hospital Course Hospital Course: is a 79 year old female pt of mine from [facility] with anxiety, HTN, hyperlipidemia, pacemaker, OA, hx breast cancer, and renal insufficiency who was admitted through the ER with flu A (diagnosed on 10/09/19 in ER) and weakness. She became ill on Oct 01, never felt well after that, wasn't eating well at home and was weak. d In the ER labs were nonacute. UA nl, WBC nl, potassium and CO2 normal. CXR was also nonacute. She has been out of bed with standby and has been doing "as well as she was at home" per her daughter at bedside. Eating more than she was at home. Last night she was very anxious and shaky, required ativan x 1. Her BP was > 200 systolic and she received hydralazine IV. This morning she was sleeping very soundly, seems a little disoriented, but if she becomes oriented, is doing well walking and eating then she can go home today. - Vitals & Intake/Output Vital Signs: Vital Signs Temperature 97.4 F 10/14/19 08:00 Pulse Rate 60 10/14/19 08:00 Respiratory Rate 18 10/14/19 08:00 Blood Pressure 128/60 10/14/19 08:00 O2 Sat by Pulse Oximetry 97 10/14/19 08:00 Intake & Output: Intake & Output 10/11/19 10/12/19 10/13/19 10/14/19 11:59 11:59 11:59 11:59 Intake Total 1982 1999 Output Total 1199 2100 Balance 783 -100 Weight 58.967 kg 59.5 kg - Lab Result Diagrams: 10/13/19 04:50 10/13/19 04:50 - Radiology Exams Ordered Rad Exams-Entire Visit: Radiology Procedures Category Date Time Status CHEST 2 VIEWS (PA AND LAT) Routine Exams 10/13/19 08:54 Completed - Procedures and Test Procedures and Tests throughout Hospitalization: Therapy Orders & Screens 10/13/19 08:50 PT Eval & Treat ( Order) ROUTINE Reason for Eval:: weakness since Narcsia; Flu A + 4d ago Diagnosis: Weakness, influenza A Discharge Exam General Appearance: no apparent distress, alert Neurologic Exam: cooperative, disoriented Eye Exam: eyes nml inspection Neck Exam: normal inspection Respiratory Exam: normal breath sounds, lungs clear, No crackles/rales, No rhonchi, No wheezing Cardiovascular Exam: regular rate/rhythm, normal heart sounds, No murmur Gastrointestinal/Abdomen Exam: soft, normal bowel sounds, No tenderness, No distention, No mass, No guarding, No rebound Extremity Exam: No pedal edema, No swelling Skin Exam: normal color, warm, dry, No rash Final Diagnosis/Problem List - Final Discharge Diagnosis/Problem (1) Influenza A Current Visit: Yes Status: Acute Assessment & Plan: Much improved. Home today. Code(s): J10.1 - FLU DUE TO OTH IDENT INFLUENZA VIRUS W OTH RESP MANIFEST (2) Weakness Current Visit: Yes Status: Resolved Code(s): R53.1 - WEAKNESS (3) Hypertension Current Visit: Yes Status: Chronic Assessment & Plan: I think was elevated last night due to anxiety; she does much better in her home environment. Code(s): I10 - ESSENTIAL (PRIMARY) HYPERTENSION - Discharge Disposition: Home, Self-Care Condition: Good Prescriptions: Continue lisinopriL [Prinivil] 2.5 mg PO DAILY Buspirone HCl 10 mg PO BID Follow up with: JORGE THORNTON [Primary Care Provider] - 1 Week
[2019-10-14] MEDS: Zestril 5 MG PO SCH (10:06)
[2019-10-14] MEDS: BUSPAR 5 MG PO SCH (10:06)
== END 2019-10-14 10:15 | disposition home or self-care (01) ==
LOC: ED 11:19 → MED SURG 14:44
PROVIDERS: ADMIT Family Medicine; ATTEND Family Medicine
DX: J09.X2 Influenza due to identified novel influenza A virus with other respiratory manifestations (principal); I10 Essential (primary) hypertension; E78.5 Hyperlipidemia, unspecified; Z95.0 Presence of cardiac pacemaker; Z85.3 Personal history of malignant neoplasm of breast; N28.9 Disorder of kidney and ureter, unspecified; R53.1 Weakness; F41.9 Anxiety disorder, unspecified; R63.4 Abnormal weight loss; Z79.899 Other long term (current) drug therapy
CPT/HCPCS: 36000; 36415; 71046; 80048; 80053; 81001; 82150; 83605; 83690; 85025; 86308; 96360; 99284; G0378; J0360; A9270-GY

== ENCOUNTER 2021-07-15 17:25 | Inpatient (IN) | payer MEDICARE, OTHER ==
[2021-07-15] MEDS ORDERED: Sodium Chloride 0.9% 1000 ML 1,000 ML IV STA (17:52)
[2021-07-15] MEDS ORDERED: Sodium Chloride 0.9% 1000 ML 1,000 ML ONE (17:58)
[2021-07-15 18:02] LABS: Absolute Neutrophil Ct (ANC) 5.75 (1.4-6.9); BASOPHIL % 0.2 % (0.0-0.4); Basophil (Absolute #) 0.02 (0-0.4); Eosinophil % 0.4 % (0.00-5.0); Eosinophil (Absolute #) 0.03 (0-0.5); Hematocrit 33.3 % (35-47); Hemoglobin 10.7 gm/dl (12.0-16.0); Lymphocyte (Absolute #) 1.63 (1.0-4.6); Lymphocytes % 19.7 % (24.0-44.0); Mean Cell Volume 98.2 fl (78-100); Mean Corpuscular Hemoglobin 31.6 pg (26-32); Mean Corpuscular Hgb Concent. 32.1 g/dl (32-36); Mean Platelet Volume 9.6 fl (7.5-11.0); Monocyte (Absolute #) 0.85 (0.0-1.3); Monocytes % 10.3 % (0.0-12.0); Neutrophil % 69.4 % (36.0-66.0); Platelet Count 288 K/mm3 (150-450); Red Blood Count 3.39 M/mm3 (4.1-5.4); Red Cell Distribution Width 13.3 % (11.5-14.0); White Blood Count 8.3 K/mm3 (4.0-10.5)
--- NOTE | 2021-07-15 18:02 | ERPHSYRPT ---
- History of Present Illness Source: patient, family Patient Subjective Stated Complaint: Weakness Triage Nursing Assessment: Patient assisted out of vehicle with assist of 2 and w/c. Patient assisted to bed with assist of 2. Patient weak and unable to stand alone. Patient A+O X3. Patient's skin pink, warm and dry. Patient's daughter reports patient having increased weakness over the past two weeks. Patient requiring someone to be with her at all times to assist with care. Patient denies pain or discomfort. Timing/Duration: week(s) (1-2 weeks) Severity: moderate Associated Symptoms: chest pain, fever, loss of appetite, syncope, weakness Hx Tetanus, Diphtheria Vaccination/Date Given: No Hx Influenza Vaccination/Date Given: Yes (2019) Hx Pneumococcal Vaccination/Date Given: No Immunizations Up to Date: Yes <WILBER ESTRADA - Last Filed: 07/15/21 18:34> <LEO GRIMALDO - Last Filed: 07/15/21 19:33> - History of Present Illness Time Seen by Provider: 07/15/21 17:58 Physician History: Patient is 80-year-old female with significant past medical history of hypertension osteoarthritis osteoporosis and recently patient had a Zakia thyroiditis and recent dehydration episode for which patient had a ER visit. S nessa last 1 to 2 weeks patient has been very weak. Patient is also feeling very dizzy and has couple falls at home. Since last 2 weeks patient is not able to take care of herself at all. Patient lives by herself. Patient also complaining of off-and-on fever with chills headache shortness of breath. Patient recently was diagnosed with Zakia thyroiditis and was started on medications. (WILBER ESTRADA) Allergies/Adverse Reactions: No Known Drug Allergies Allergy (Verified 07/15/21 17:34) Home Medications: Buspirone HCl 5 mg PO TID 10/09/19 [History] lisinopriL [Prinivil] 10 mg PO DAILY 10/09/19 [History] Furosemide 20 mg [Lasix 20 mg] 1 tab PO DAILY 07/15/21 [History] Meloxicam 1 tab PO DAILY 07/15/21 [History] Metoprolol Succinate 50 mg [Toprol Xl 50 MG] 1 tab PO DAILY 07/15/21 [History] Mycophenolate Mofetil [Cellcept] 1 tab PO BID 07/15/21 [History] Travel Risk - International Travel Have you traveled outside of the country in past 3 weeks: No - Coronavirus Screening Are you exhibiting any of the following symptoms?: No Close contact with a COVID-19 positive Pt in past 14-21 Days: No - Vaccine Status Have you recieved a Covid-19 vaccination: Yes [employer]: [employer] - Vaccination Dates Date of 2cond Vaccination (if applicable): 11/30/2020 <NAN ESTRADAYESH - Last Filed: 07/15/21 18:34> - Review of Systems Constitutional: Fever, Chills, Fatigue, Weakness Eyes: No Symptoms Ears, Nose, & Throat: No Symptoms Respiratory: Dyspnea on Exertion (LAZO), No Cough, No Dyspnea Cardiac: Chest Pain, No Edema, No Syncope Abdominal/Gastrointestinal: No Abdominal Pain, No Nausea, No Vomiting, No Diarrhea Genitourinary Symptoms: No Dysuria Musculoskeletal: Back Pain, Fall, No Neck Pain Skin: No Symptoms, No Rash Neurological: No Dizziness, No Focal Weakness, No Sensory Changes Psychological: No Symptoms Endocrine: No Symptoms All Other Systems: Reviewed and Negative <SEAN, - Last Filed: 07/15/21 18:34> - Past Medical History Pertinent Past Medical History: Yes Neurological History: No Pertinent History ENT History: Cataracts Cardiac History: Hypertension Respiratory History: No Pertinent History Endocrine Medical History: No Pertinent History Musculoskeletal History: Osteoarthritis GI Medical History: No Pertinent History History: No Pertinent History Psycho-Social History: No Pertinent History Female Reproductive Disorders: Breast Cancer Other Medical History: Breast CA 5-6 years ago - Past Surgical History Past Surgical History: Yes Neuro Surgical History: No Pertinent History Cardiac: Pacemaker Respiratory: No Pertinent History Gastrointestinal: No Pertinent History Genitourinary: No Pertinent History Musculoskeletal: No Pertinent History Female Surgical History: Lumpectomy, Mastectomy, Other Other Surgical History: cataract - Social History Smoking Status: Never smoker Exposure to second hand smoke: No Drug Use: none Patient Lives Alone: No - Female History Hx Now: No <NAN ESTRADAYESH - Last Filed: 07/15/21 18:34> - Physical Exam General Appearance: mild distress Eye Exam: PERRL/EOMI, eyes nml inspection Ears, Nose, Throat Exam: normal ENT inspection, TMs normal, pharynx normal, moist mucous membranes Neck Exam: normal inspection, non-tender, supple, full range of motion Respiratory Exam: diminished breath sounds, crackles/rales, rhonchi, wheezing, No respiratory distress Cardiovascular Exam: regular rate/rhythm, murmur, capillary refill >3 sec Gastrointestinal/Abdomen Exam: soft, normal bowel sounds, No tenderness, No mass Back Exam: normal inspection, decreased range of motion, No CVA tenderness, No vertebral tenderness Extremity Exam: normal inspection, normal range of motion, pelvis stable, pedal edema Neurologic Exam: alert, oriented x 3, cooperative, sensation nml, motor weakness, No motor deficits Skin Exam: normal color, warm, dry, No rash Lymphatic Exam: No adenopathy SpO2: 100 <NAN ESTRADAYESH - Last Filed: 07/15/21 18:34> - Nursing Vital Signs Nursing Vital Signs: Initial Vital Signs Temperature 97.6 F 07/15/21 17:34 Pulse Rate 69 07/15/21 17:34 Respiratory Rate 19 07/15/21 17:34 Blood Pressure 125/59 07/15/21 17:34 O2 Sat by Pulse Oximetry 100 07/15/21 17:34 Pain Scale Pain Intensity 0 - Course Nursing assessment & vital signs reviewed: Yes EKG Interpreted by Me: Non-specific ST Changes - Radiology Exams Chest X-ray Interpretation: Reviewed by me <SEAN - Last Filed: 07/15/21 18:34> Ordered Tests: Active Orders 24 hr Category Date Time Status EKG-ER Only STAT Care 07/15/21 17:52 Active Oxygen-ED Only Nasal Cannula 2 lpm Care 07/15/21 17:52 Active CHEST 1 VIEW (PORTABLE) Stat Exams 07/15/21 17:54 Taken CBC W DIFF Stat Lab 07/15/21 17:57 Completed CK-Creatinine Phosphokinase Stat Lab 07/15/21 17:57 Completed CMP Stat Lab 07/15/21 17:57 Completed CULTURE,URINE Stat Lab 07/15/21 17:57 Received D-DIMER QUANTITATIVE Stat Lab 07/15/21 17:57 Completed Erythrocyte Sedimentation Rate Stat Lab 07/15/21 17:57 Completed MAGNESIUM Stat Lab 07/15/21 17:57 Completed NT PRO BNP Stat Lab 07/15/21 17:57 Completed TROPONIN Q3H Lab 07/15/21 17:57 Completed TROPONIN Q3H Lab 07/15/21 21:00 Ordered TROPONIN Q3H Lab 07/16/21 00:00 Ordered TROPONIN Q3H Lab 07/16/21 03:00 Ordered TROPONIN Q3H Lab 07/16/21 06:00 Ordered UA W/RFX UR CULTURE Stat Lab 07/15/21 17:57 Completed Medication Summary Discontinued Medications Generic Name Dose Route Start Last Admin Trade Name Citlali PRN Reason Stop Dose Admin Sodium Chloride 1,000 mls @ 999 mls/hr 07/15/21 17:52 07/15/21 18:01 Sodium Chloride 0.9% 1000 Ml IV 07/15/21 18:52 999 mls/hr .Q1H1M STA Administration Sodium Chloride Confirm 07/15/21 17:58 Sodium Chloride 0.9% 1000 Ml Administered 07/15/21 17:59 Dose 1,000 mls @ ud .ROUTE .STK-MED ONE Lab/Rad Data: Laboratory Result Diagrams 07/15/21 17:57 07/15/21 17:57 Laboratory Results 07/15/21 07/15/21 07/15/21 Range/Units 17:57 17:57 17:57 WBC (4.0-10.5) K/mm3 RBC (4.1-5.4) M/mm3 Hgb (12.0-16.0) gm/dl Hct (35-47) % MCV (78-100) fl MCH (26-32) pg MCHC (32-36) g/dl RDW (11.5-14.0) % Plt Count (150-450) K/mm3 MPV (7.5-11.0) fl Gran % (36.0-66.0) % Eos # (Auto) (0-0.5) Absolute Lymphs (auto) (1.0-4.6) Absolute Monos (auto) (0.0-1.3) Lymphocytes % (24.0-44.0) % Monocytes % (0.0-12.0) % Eosinophils % (0.00-5.0) % Basophils % (0.0-0.4) % Absolute Granulocytes (1.4-6.9) Basophils # (0-0.4) ESR (0-20) mm/hr D-Dimer 1221 H* (215-500) ng/mL Sodium (137-145) mmol/L Potassium (3.5-5.1) mmol/L Chloride (98-107) mmol/L Carbon Dioxide (22-30) mmol/L Anion Gap (5-15) MEQ/L BUN (7-17) mg/dL Creatinine (0.52-1.04) mg/dL Estimated GFR ML/MIN Glucose (74-106) mg/dL Calcium (8.4-10.2) mg/dL Magnesium (1.6-2.3) mg/dL Total Bilirubin (0.2-1.3) mg/dL AST (14-36) U/L ALT (0-35) U/L Alkaline Phosphatase (38-126) U/L Creatine Kinase (30-135) U/L Troponin I < 0.012 (0.000-0.034) ng/mL NT-Pro-B Natriuret Pep (0-1800) pg/mL Serum Total Protein (6.3-8.2) g/dL Albumin (3.5-5.0) g/dL Urine Color YELLOW (YELLOW) Urine Appearance CLEAR (CLEAR) Urine pH 5.0 (5-6) Ur Specific [place] 1.013 (1.005-1.025) Urine Protein NEGATIVE (Negative) Urine Ketones NEGATIVE (NEGATIVE) Urine Blood MODERATE (0-5) Aguilar/ul Urine Nitrite NEGATIVE (NEGATIVE) Urine Bilirubin NEGATIVE (NEGATIVE) Urine Urobilinogen NEGATIVE (0-1) mg/dL Ur Leukocyte Esterase NEGATIVE (NEGATIVE) Urine WBC (Auto) 6-10 (0-5) /HPF Urine RBC (Auto) 3-5 (0-2) /HPF U Hyaline Cast (Auto) 0-2 (0-2) /LPF U Epithel Cells (Auto) NONE (FEW) /HPF Urine Bacteria (Auto) RARE (NEGATIVE) /HPF Urine Culture Reflexed YES (NO) Urine Glucose NEGATIVE (NEGATIVE) mg/dL 07/15/21 07/15/21 Range/Units 17:57 17:57 WBC 8.3 (4.0-10.5) K/mm3 RBC 3.39 L (4.1-5.4) M/mm3 Hgb 10.7 L (12.0-16.0) gm/dl Hct 33.3 L (35-47) % MCV 98.2 (78-100) fl MCH 31.6 (26-32) pg MCHC 32.1 (32-36) g/dl RDW 13.3 (11.5-14.0) % Plt Count 288 (150-450) K/mm3 MPV 9.6 (7.5-11.0) fl Gran % 69.4 H (36.0-66.0) % Eos # (Auto) 0.03 (0-0.5) Absolute Lymphs (auto) 1.63 (1.0-4.6) Absolute Monos (auto) 0.85 (0.0-1.3) Lymphocytes % 19.7 L (24.0-44.0) % Monocytes % 10.3 (0.0-12.0) % Eosinophils % 0.4 (0.00-5.0) % Basophils % 0.2 (0.0-0.4) % Absolute Granulocytes 5.75 (1.4-6.9) Basophils # 0.02 (0-0.4) ESR 39 H (0-20) mm/hr D-Dimer (215-500) ng/mL Sodium 136 L (137-145) mmol/L Potassium 3.9 (3.5-5.1) mmol/L Chloride 97 L (98-107) mmol/L Carbon Dioxide 28 (22-30) mmol/L Anion Gap 13.9 (5-15) MEQ/L BUN 27 H (7-17) mg/dL Creatinine 1.24 H (0.52-1.04) mg/dL Estimated GFR 44.2 ML/MIN Glucose 120 H (74-106) mg/dL Calcium 9.6 (8.4-10.2) mg/dL Magnesium 1.7 (1.6-2.3) mg/dL Total Bilirubin 0.70 (0.2-1.3) mg/dL AST 31 (14-36) U/L ALT 13 (0-35) U/L Alkaline Phosphatase 66 (38-126) U/L Creatine Kinase 129 (30-135) U/L Troponin I (0.000-0.034) ng/mL NT-Pro-B Natriuret Pep 338 (0-1800) pg/mL Serum Total Protein 7.4 (6.3-8.2) g/dL Albumin 4.3 (3.5-5.0) g/dL Urine Color (YELLOW) Urine Appearance (CLEAR) Urine pH (5-6) Ur Specific [place] (1.005-1.025) Urine Protein (Negative) Urine Ketones (NEGATIVE) Urine Blood (0-5) Aguilar/ul Urine Nitrite (NEGATIVE) Urine Bilirubin (NEGATIVE) Urine Urobilinogen (0-1) mg/dL Ur Leukocyte Esterase (NEGATIVE) Urine WBC (Auto) (0-5) /HPF Urine RBC (Auto) (0-2) /HPF U Hyaline Cast (Auto) (0-2) /LPF U Epithel Cells (Auto) (FEW) /HPF Urine Bacteria (Auto) (NEGATIVE) /HPF Urine Culture Reflexed (NO) Urine Glucose (NEGATIVE) mg/dL - Progress Progress: improved, re-examined Discussed with Dr.: Duke Will see patient in: hospital (observation) Counseled pt/family regarding: lab results, diagnosis, need for follow-up, rad results <LEO GRIMALDO - Last Filed: 07/15/21 19:33> - Progress Progress Note: 07/15/21 19:14 took over care at change of shift from Dr. Estrada after discussion of pending studies and previous workup recently at [facility] without findings. Not SOBreath, but D Dimer was elevated and not meeting criteria for PE protocol and cannot perform this. Discussed with Dr. Byrd and pt and family risks of undetected PE, but clinically does not seem significant at this time, risk/benefit of lovenox proph including bleeding, and that perfusion scam would be delayed until Saturday first available here, and all agree and are comfortable with obs here , proph Tx and VQ scan Saturday if still indicated/indicated at that time, rather than transfer for this additional low yield w/u at this time, and in keeping with the effects of her age and RFTs on the D dimer reading. Also has parkinsons and Hashimotis - checking thyroid. 07/15/21 19:23 07/15/21 19:31 (LEO GRIMALDO) <WILBER ESTRADA - Last Filed: 07/15/21 18:34> - Departure Departure Disposition: Observation Critical Care Time: No <LEO GRIMALDO - Last Filed: 07/15/21 19:33> - Departure Clinical Impression: Weakness, near syncope, Parkinson disease, H/O Zakia thyroiditis Condition: Good Referrals: JORGE OWEN [Primary Care Provider] -
[2021-07-15 18:06] LABS: Appearance CLEAR (CLEAR); Bilirubin NEGATIVE (NEGATIVE); Blood MODERATE Ery/ul (0-5); Glucose NEGATIVE (NEGATIVE); Hyaline Casts 0-2 /LPF (0-2); Ketones NEGATIVE (NEGATIVE); Leukocyte Esterase NEGATIVE (NEGATIVE); Nitrite NEGATIVE (NEGATIVE); Protein,Urine Dip NEGATIVE (Negative); Specific Gravity 1.013 (1.005-1.025); Urobilinogen NEGATIVE mg/dL (0-1)
[2021-07-15 18:07] LABS: Bacteria RARE /HPF (NEGATIVE)
[2021-07-15 18:45] LABS: ALBUMIN 4.3 g/dL (3.5-5.0); ANION GAP 13.9 MEQ/L (5-15); BILIRUBIN,TOTAL 0.7 mg/dL (0.2-1.3); Calcium 9.6 mg/dL (8.4-10.2); Creatinine 1 1.24 mg/dL (0.52-1.04); EST GLOMERULAR FILTRATION RATE 44.2 ML/MIN; MAGNESIUM 1.7 mg/dL (1.6-2.3); Potassium 3.9 mmol/L (3.5-5.1); Total Protein 7.4 g/dL (6.3-8.2)
[2021-07-15 18:57] LABS: Erythrocyte Sedimentation Rate 39 mm/hr (0-20)
[2021-07-15] MEDS ORDERED: MORPHINE SULFATE 2 MG INJ IV PRN (19:34)
[2021-07-15] MEDS ORDERED: HUMULIN R SQ PRN (19:34)
--- NOTE | 2021-07-15 19:47 | XRAY ---
Indication: Weakness. Comparison: October 13, 2019. Portable chest remains hyperinflated and clear. Heart not enlarged again with mediastinal/hilar calcified nodes and right pacemaker. Bony thorax intact again with mild osteopenia and degenerative changes. Impression: Continued nonacute hyperinflated chest with chronic features.
[2021-07-15] MEDS ORDERED: ROCEPHIN 1 Gm-D5w 50 ml Bag** 1 G/50 ML IVPB IV ONE (19:55)
[2021-07-15] MEDS: Ativan 0.5 MG PO PRN (23:36)
[2021-07-15] MEDS: Pepcid 20 MG VIAL IV SCH (23:36)
[2021-07-16 03:51] LABS: ALBUMIN 3.5 g/dL (3.5-5.0); ANION GAP 11.1 MEQ/L (5-15); BILIRUBIN,TOTAL 0.6 mg/dL (0.2-1.3); Calcium 9.2 mg/dL (8.4-10.2); Creatinine 1 0.98 mg/dL (0.52-1.04); Potassium 3.6 mmol/L (3.5-5.1); Total Protein 6.2 g/dL (6.3-8.2)
[2021-07-16 04:42] LABS: Absolute Neutrophil Ct (ANC) 4.33 (1.4-6.9); BASOPHIL % 0.3 % (0.0-0.4); Basophil (Absolute #) 0.02 (0-0.4); Eosinophil % 0.9 % (0.00-5.0); Eosinophil (Absolute #) 0.07 (0-0.5); Hematocrit 30.2 % (35-47); Hemoglobin 9.4 gm/dl (12.0-16.0); Lymphocyte (Absolute #) 2.65 (1.0-4.6); Lymphocytes % 33.4 % (24.0-44.0); Mean Corpuscular Hemoglobin 31.1 pg (26-32); Mean Corpuscular Hgb Concent. 31.1 g/dl (32-36); Mean Platelet Volume 9.8 fl (7.5-11.0); Monocyte (Absolute #) 0.87 (0.0-1.3); Neutrophil % 54.4 % (36.0-66.0); Platelet Count 238 K/mm3 (150-450); Red Blood Count 3.02 M/mm3 (4.1-5.4); Red Cell Distribution Width 13.2 % (11.5-14.0); White Blood Count 7.9 K/mm3 (4.0-10.5)
[2021-07-16] MEDS ORDERED: Sodium Chloride 0.9% 1000 ML 1,000 ML ONE (04:47)
[2021-07-16] MEDS: Sodium Chloride 0.9% 1000 ML 1,000 ML IV SCH ×2 (04:49→21:16)
[2021-07-16] MEDS ORDERED: Pepcid 20 MG VIAL IV ONE (09:55)
[2021-07-16] MEDS ORDERED: ENOXAPARIN SODIUM ONE (09:55)
[2021-07-16] MEDS ORDERED: ROCEPHIN 1 Gm-D5w 50 ml Bag** 1 G/50 ML IVPB IV SCH (10:00)
[2021-07-16] MEDS: Pepcid 20 MG VIAL IV SCH ×2 (10:43→21:16)
[2021-07-16] MEDS: ENOXAPARIN SODIUM SQ SCH (10:46)
[2021-07-16] MEDS: MELOXICAM PO SCH (16:08)
[2021-07-16] MEDS: Toprol Xl 50 MG PO SCH (16:08)
[2021-07-16] MEDS ORDERED: MEDICATION INTERVENTION MC SCH ×2 (16:15)
--- NOTE | 2021-07-16 21:01 | PCM.HP ---
History of Present Illness - Chief Complaint Chief Complaint: weakness, near syncope History of Present Illness: is an 80 year old female patient of Dr Pascual who presented to [facility] ER with a rather abrupt onset of generalized weakness affecting ambulation.She has had falls at home due to loss of balance upon standing. Daughter states that a week or so ago she was ambulating independently. She was seen initially at [facility] ER last week and treated with Keflex for UTI. Daughter states CT head was "OK".They recommended rehab. PMHx includes HTN, Parkinson's followed by Neurologist Dr Chan Valle,Hashimotos Thyroid dz. OA and osteoporosis. Daughter states Dr Valle stopped the "restless leg med" 2 weeks ago thinking it may be affecting her gait. Hashimotos Thyroid was dg recently /TPO was elevated and Dr Valle started ptn on Cellcept 1 week ago. Medications & Allergies Home Medications: Home Medication List Buspirone HCl 5 mg PO TID 10/09/19 [History Confirmed 07/15/21] lisinopriL [Prinivil] 10 mg PO DAILY 10/09/19 [History Confirmed 07/15/21] Cephalexin Monohydrate [Cephalexin] 500 mg PO Q8H 07/15/21 [History Confirmed 07/15/21] Furosemide 20 mg [Lasix 20 mg] 1 tab PO DAILY 07/15/21 [History Confirmed 07/15/21] Melatonin/Pyridoxine [Melatonin 5 mg Tablet] 1 each PO HS 07/15/21 [History Confirmed 07/15/21] Meloxicam 1 tab PO DAILY 07/15/21 [History Confirmed 07/15/21] Metoprolol Succinate 50 mg [Toprol Xl 50 MG] 1 tab PO DAILY 07/15/21 [History Confirmed 07/15/21] Mycophenolate Mofetil [Cellcept] 1 tab PO BID 07/15/21 [History Confirmed 07/15/21] Allergies/Adverse Reactions: Allergies Allergy/AdvReac Type Severity Reaction Status Date / Time No Known Drug Allergies Allergy Verified 07/15/21 17:34 - Past Medical History Past Medical History: Yes Neurological History: Other ENT History: No Pertinent History Cardiac History: Other Respiratory History: No Pertinent History Endocrine Medical History: No Pertinent History Musculoskelatal History: No Pertinent History GI Medical History: No Pertinent History History: No Pertinent History Pyscho-Social History: Anxiety Reproductive Disorders: Breast Cancer Comment: PPM, Parkinson - Female History Are you now?: No - Past Surgical History Past Surgical History: Yes Neuro Surgical History: No Pertinent History Cardiac History: Pacemaker Respiratory Surgery: No Pertinent History GI Surgical History: No Pertinent History Genitourinary Surgical Hx: No Pertinent History Musculskeletal Surgical Hx: No Pertinent History Female Surgical History: Mastectomy, Lumpectomy Other Surgical History: cataract - Social History Smoking Status: Light tobacco smoker Exposure to second hand smoke: No Alcohol: None Drug Use: none - Physical Exam Vital Signs: Vital Signs - 24 hr Temp Pulse Resp BP Pulse Ox 07/16/21 19:56 98.9 F 61 18 149/66 98 07/16/21 16:00 98.0 F 70 18 169/73 99 07/16/21 12:00 98.1 F 69 16 135/62 98 07/16/21 07:56 97.6 F 64 16 144/66 97 07/16/21 04:12 97.3 F 68 16 121/56 97 07/16/21 03:48 14 07/15/21 22:44 96 07/15/21 22:41 98.9 F 63 16 134/61 97 Results - Labs Lab/Micro Results: Lab Results-Last 24 Hours 07/15/21 07/15/21 07/15/21 Range/Units 17:57 17:57 20:15 WBC (4.0-10.5) K/mm3 RBC (4.1-5.4) M/mm3 Hgb (12.0-16.0) gm/dl Hct (35-47) % MCV (78-100) fl MCH (26-32) pg MCHC (32-36) g/dl RDW (11.5-14.0) % Plt Count (150-450) K/mm3 MPV (7.5-11.0) fl Gran % (36.0-66.0) % Eos # (Auto) (0-0.5) Absolute Lymphs (auto) (1.0-4.6) Absolute Monos (auto) (0.0-1.3) Lymphocytes % (24.0-44.0) % Monocytes % (0.0-12.0) % Eosinophils % (0.00-5.0) % Basophils % (0.0-0.4) % Absolute Granulocytes (1.4-6.9) Basophils # (0-0.4) Sodium (137-145) mmol/L Potassium (3.5-5.1) mmol/L Chloride (98-107) mmol/L Carbon Dioxide (22-30) mmol/L Anion Gap (5-15) MEQ/L BUN (7-17) mg/dL Creatinine (0.52-1.04) mg/dL Estimated GFR ML/MIN Glucose (74-106) mg/dL Calcium (8.4-10.2) mg/dL Total Bilirubin (0.2-1.3) mg/dL AST (14-36) U/L ALT (0-35) U/L Alkaline Phosphatase (38-126) U/L Troponin I (0.000-0.034) ng/mL Serum Total Protein (6.3-8.2) g/dL Albumin (3.5-5.0) g/dL Thyroxine (T4) 14.0 H (5.53-10.96) ug/dL Free T3 pg/mL (2.77-5.27) pg/mL TSH 3rd Generation 1.500 (0.47-4.68) mIU/L SARS-CoV-2 (PCR) NEGATIVE (NEGATIVE) 07/15/21 07/16/21 07/16/21 Range/Units 20:45 00:32 00:33 WBC (4.0-10.5) K/mm3 RBC (4.1-5.4) M/mm3 Hgb (12.0-16.0) gm/dl Hct (35-47) % MCV (78-100) fl MCH (26-32) pg MCHC (32-36) g/dl RDW (11.5-14.0) % Plt Count (150-450) K/mm3 MPV (7.5-11.0) fl Gran % (36.0-66.0) % Eos # (Auto) (0-0.5) Absolute Lymphs (auto) (1.0-4.6) Absolute Monos (auto) (0.0-1.3) Lymphocytes % (24.0-44.0) % Monocytes % (0.0-12.0) % Eosinophils % (0.00-5.0) % Basophils % (0.0-0.4) % Absolute Granulocytes (1.4-6.9) Basophils # (0-0.4) Sodium (137-145) mmol/L Potassium (3.5-5.1) mmol/L Chloride (98-107) mmol/L Carbon Dioxide (22-30) mmol/L Anion Gap (5-15) MEQ/L BUN (7-17) mg/dL Creatinine (0.52-1.04) mg/dL Estimated GFR ML/MIN Glucose (74-106) mg/dL Calcium (8.4-10.2) mg/dL Total Bilirubin (0.2-1.3) mg/dL AST (14-36) U/L ALT (0-35) U/L Alkaline Phosphatase (38-126) U/L Troponin I < 0.012 < 0.012 (0.000-0.034) ng/mL Serum Total Protein (6.3-8.2) g/dL Albumin (3.5-5.0) g/dL Thyroxine (T4) (5.53-10.96) ug/dL Free T3 pg/mL 2.83 (2.77-5.27) pg/mL TSH 3rd Generation (0.47-4.68) mIU/L SARS-CoV-2 (PCR) (NEGATIVE) 07/16/21 07/16/21 07/16/21 Range/Units 03:15 03:15 03:15 WBC 7.9 (4.0-10.5) K/mm3 RBC 3.02 L (4.1-5.4) M/mm3 Hgb 9.4 L (12.0-16.0) gm/dl Hct 30.2 L (35-47) % MCV 100.0 (78-100) fl MCH 31.1 (26-32) pg MCHC 31.1 L (32-36) g/dl RDW 13.2 (11.5-14.0) % Plt Count 238 (150-450) K/mm3 MPV 9.8 (7.5-11.0) fl Gran % 54.4 (36.0-66.0) % Eos # (Auto) 0.07 (0-0.5) Absolute Lymphs (auto) 2.65 (1.0-4.6) Absolute Monos (auto) 0.87 (0.0-1.3) Lymphocytes % 33.4 (24.0-44.0) % Monocytes % 11.0 (0.0-12.0) % Eosinophils % 0.9 (0.00-5.0) % Basophils % 0.3 (0.0-0.4) % Absolute Granulocytes 4.33 (1.4-6.9) Basophils # 0.02 (0-0.4) Sodium 137 (137-145) mmol/L Potassium 3.6 (3.5-5.1) mmol/L Chloride 103 (98-107) mmol/L Carbon Dioxide 27 (22-30) mmol/L Anion Gap 11.1 (5-15) MEQ/L BUN 23 H (7-17) mg/dL Creatinine 0.98 (0.52-1.04) mg/dL Estimated GFR 58.0 ML/MIN Glucose 88 (74-106) mg/dL Calcium 9.2 (8.4-10.2) mg/dL Total Bilirubin 0.60 (0.2-1.3) mg/dL AST 27 (14-36) U/L ALT 11 (0-35) U/L Alkaline Phosphatase 53 (38-126) U/L Troponin I < 0.012 (0.000-0.034) ng/mL Serum Total Protein 6.2 L (6.3-8.2) g/dL Albumin 3.5 (3.5-5.0) g/dL Thyroxine (T4) (5.53-10.96) ug/dL Free T3 pg/mL (2.77-5.27) pg/mL TSH 3rd Generation (0.47-4.68) mIU/L SARS-CoV-2 (PCR) (NEGATIVE) 07/16/21 Range/Units 05:55 WBC (4.0-10.5) K/mm3 RBC (4.1-5.4) M/mm3 Hgb (12.0-16.0) gm/dl Hct (35-47) % MCV (78-100) fl MCH (26-32) pg MCHC (32-36) g/dl RDW (11.5-14.0) % Plt Count (150-450) K/mm3 MPV (7.5-11.0) fl Gran % (36.0-66.0) % Eos # (Auto) (0-0.5) Absolute Lymphs (auto) (1.0-4.6) Absolute Monos (auto) (0.0-1.3) Lymphocytes % (24.0-44.0) % Monocytes % (0.0-12.0) % Eosinophils % (0.00-5.0) % Basophils % (0.0-0.4) % Absolute Granulocytes (1.4-6.9) Basophils # (0-0.4) Sodium (137-145) mmol/L Potassium (3.5-5.1) mmol/L Chloride (98-107) mmol/L Carbon Dioxide (22-30) mmol/L Anion Gap (5-15) MEQ/L BUN (7-17) mg/dL Creatinine (0.52-1.04) mg/dL Estimated GFR ML/MIN Glucose (74-106) mg/dL Calcium (8.4-10.2) mg/dL Total Bilirubin (0.2-1.3) mg/dL AST (14-36) U/L ALT (0-35) U/L Alkaline Phosphatase (38-126) U/L Troponin I < 0.012 (0.000-0.034) ng/mL Serum Total Protein (6.3-8.2) g/dL Albumin (3.5-5.0) g/dL Thyroxine (T4) (5.53-10.96) ug/dL Free T3 pg/mL (2.77-5.27) pg/mL TSH 3rd Generation (0.47-4.68) mIU/L SARS-CoV-2 (PCR) (NEGATIVE) Microbiology 07/15/21 17:57 Urine Culture - Preliminary Urine, Void NO GROWTH TO DATE - Radiology Impressions Radiology Exams & Impressions: Radiology Procedures Category Date Time Status CHEST 1 VIEW (PORTABLE) Stat Exams 07/15/21 17:54 Completed Assessment/Plan (1) Difficulty in walking Current Visit: Yes Status: Acute Assessment & Plan: onset 7-10 days ago Code(s): R26.2 - DIFFICULTY IN WALKING, NOT ELSEWHERE CLASSIFIED (2) Falls Current Visit: Yes Status: Acute Assessment & Plan: new Code(s): W19.XXXA - UNSPECIFIED FALL, INITIAL ENCOUNTER (3) Parkinson disease Current Visit: Yes Status: Chronic Assessment & Plan: followed by Neurologist ,Dr Valle Code(s): G20 - PARKINSON'S DISEASE (4) H/O Zakia thyroiditis Current Visit: Yes Status: Acute Assessment & Plan: new diagnosis tx by Dr Valle with Celcept started 1 week ago Code(s): Z86.39 - PERSONAL HISTORY OF ENDO, NUTRITIONAL AND METABOLIC DISEASE (5) Change in mental state Current Visit: Yes Status: Acute Qualifiers: Altered mental status type: unspecified Qualified Code(s): R41.82 - Altered mental status, unspecified Assessment & Plan: memory/communication impairment changes per daughter-new,consider MRI-needs to change admit status to full admit for full work up. Code(s): R41.82 - ALTERED MENTAL STATUS, UNSPECIFIED
[2021-07-16] MEDS: BUSPAR 5 MG PO SCH (21:16)
[2021-07-16] MEDS: ROCEPHIN 1 Gm-D5w 50 ml Bag** 1 G/50 ML IVPB IV SCH (21:16)
[2021-07-16] MEDS ORDERED: NON-FORMULARY ITEM (Melatonin/Pyridoxine [Melatonin 5 Mg Tablet] 1 EACH) PO SCH (22:00)
[2021-07-16] MEDS ORDERED: MYCOPHENOLATE MOFETIL PO SCH (22:00)
[2021-07-16] MEDS: Ativan 0.5 MG PO PRN (23:44)
[2021-07-17] MEDS: Sodium Chloride 0.9% 1000 ML 1,000 ML IV SCH (03:28)
[2021-07-17] MEDS ORDERED: APRESOLINE 20 MG/ML INJ IV PRN (08:07)
--- NOTE | 2021-07-17 08:37 | PCM.NOTE ---
Date and Time: 07/17/21 0832 Subjective Assessment: I spoke with pt's daughter, Lily, briefly. Pt has been having hallucinations for some time, since last year. However, the weakness and inability to transfer etc is new recently. Pt wakes to voice and speaks to me this morning, although she won't open her eyes. When I ask if she will wake up for me, she says, "Probably not. This is the first good sleep I've had all summer." She is not oriented to place ("I'm supposed to be in [place],") but is oriented to year, although the month is June. - Review of Systems Constitutional: No Fever Abdominal/Gastrointestinal: No Vomiting Objective Exam General Appearance: no apparent distress, alert Neurologic Exam: disoriented, other (Lies still throughout exam) Skin Exam: normal color, warm, dry, No rash Ears, Nose, Throat Exam: moist mucous membranes Neck Exam: normal inspection Respiratory Exam: normal breath sounds, lungs clear, No crackles/rales, No rhonchi, No wheezing Cardiovascular Exam: regular rate/rhythm, normal heart sounds, murmur (IV/ late systolic murmur, creaking in nature, best heard at L lower sternal border) Gastrointestinal/Abdomen Exam: soft, normal bowel sounds, No tenderness, No distention Extremity Exam: No pedal edema, No swelling OBJECTIVE DATA Vital Signs: Vital Signs - 24 hr Temp Pulse Resp BP Pulse Ox 07/17/21 04:05 99.1 F 68 16 177/77 96 07/17/21 04:00 20 07/17/21 00:00 16 07/16/21 23:54 98.9 F 66 18 147/66 96 07/16/21 20:00 16 07/16/21 19:56 98.9 F 61 18 149/66 98 07/16/21 16:00 98.0 F 70 18 169/73 99 07/16/21 12:00 98.1 F 69 16 135/62 98 Pain Assessment - Last Documented Pain Intensity 0 Intake and Output: Intake & Output 07/14/21 07/15/21 07/16/21 07/17/21 11:59 11:59 11:59 11:59 Intake Total 499 1855 Output Total 300 1750 Balance 199 105 Weight 58.1 kg 59.2 kg Radiology Exams: Radiology Procedures Category Date Time Status CHEST 1 VIEW (PORTABLE) Stat Exams 07/15/21 17:54 Completed ECHO W/2D AND DOPPLER [US] Routine Exams 07/17/21 Ordered MRI BRAIN W & W/O CONTRAST [MRI] Routine Exams 07/17/21 08:27 Ordered Assessment/Plan (1) Difficulty in walking Current Visit: Yes Status: Acute Assessment & Plan: This weakness has a very acute onset. Workup as below. Consult PT. Restart her RLS meds, pt's daughter says her legs get very sore without it so she may have stopped moving around when she stopped it. Code(s): R26.2 - DIFFICULTY IN WALKING, NOT ELSEWHERE CLASSIFIED (2) Heart murmur Current Visit: Yes Status: Acute Assessment & Plan: New onset, pt does not have any known valvular pathology. Echo today. Code(s): R01.1 - CARDIAC MURMUR, UNSPECIFIED (3) Change in mental state Current Visit: Yes Status: Acute Qualifiers: Altered mental status type: unspecified Qualified Code(s): R41.82 - Altered mental status, unspecified Assessment & Plan: Possibly acute on chronic. MRI brain today. Pt was on cell cept but only for about a week; Dr. Byrd discussed with me the possibility of PML but she was only on the med for a short time. Teleneurology consult to be done today. 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 Valle, neurologist. Code(s): E06.3 - AUTOIMMUNE THYROIDITIS (5) Parkinson disease Current Visit: Yes Status: Chronic Code(s): G20 - PARKINSON'S DISEASE (6) Hypertension Current Visit: No Status: Chronic Qualifiers: Hypertension type: primary hypertension Qualified Code(s): I10 - Essential (primary) hypertension Assessment & Plan: prn hydralazine Code(s): I10 - ESSENTIAL (PRIMARY) HYPERTENSION
[2021-07-17] MEDS ORDERED: Ativan 2 MG/1 ML VIAL IV ONE (08:41)
[2021-07-17] MEDS: Mirapex 0.5 MG Tablet PO SCH ×3 (09:43→22:16)
[2021-07-17] MEDS: ENOXAPARIN SODIUM SQ SCH ×2 (09:45→09:56)
[2021-07-17] MEDS: BUSPAR 5 MG PO SCH ×3 (09:46→22:17)
[2021-07-17] MEDS: Zestril 10 MG PO SCH (09:46)
[2021-07-17] MEDS: Toprol Xl 50 MG PO SCH (09:46)
[2021-07-17] MEDS: MELOXICAM PO SCH (09:47)
[2021-07-17] MEDS: Pepcid 20 MG VIAL IV SCH ×2 (09:47→22:16)
[2021-07-17] MEDS ORDERED: MELOXICAM PO SCH (10:00)
[2021-07-17] MEDS ORDERED: Zestril 5 MG PO SCH (10:00)
[2021-07-17 13:57] LABS: Triiodothyronine (T3) 83 ng/dL (71-180)
--- NOTE | 2021-07-17 13:59 | XRAY ---
Indication: Chest discomfort. Elevated d-dimer. Poor renal function. Comparison: None Patient received 5 mCi technetium 99 MAA for the perfusion portion of exam. Patient inhaled 36 mCi aerosolized technetium 99 DTPA for the ventilation portion of exam. Multiple planar images obtained. Perfusion images demonstrates homogeneous radiopharmaceutical activity bilaterally. No segmental/subsegmental perfusion defects. Ventilation images also demonstrates diffuse bilateral homogeneous radiopharmaceutical activity. Impression: Nuclear medicine ventilation perfusion scan is normal.
[2021-07-17] MEDS: Ativan 0.5 MG PO PRN (15:21)
[2021-07-17 17:28] LABS: Thyroglobulin Antibody <1.0 IU/mL (0.0-0.9)
[2021-07-17] MEDS ORDERED: Ativan 2 MG/1 ML VIAL IV PRN (19:06)
[2021-07-17] MEDS: ROCEPHIN 1 Gm-D5w 50 ml Bag** 1 G/50 ML IVPB IV SCH (22:17)
[2021-07-18] MEDS: Sodium Chloride 0.9% 1000 ML 1,000 ML IV SCH (00:31)
--- NOTE | 2021-07-18 07:58 | PCM.NOTE ---
Date and Time: 07/18/21 0753 Subjective Assessment: Pt is oriented to place; Thinks date is 07/03/21. Slept all night last night. Objective Exam General Appearance: no apparent distress, alert Neurologic Exam: cooperative, other (appears somewhat weak as she repositions herself in bed) Skin Exam: normal color, warm, dry, No rash Eye Exam: eyes nml inspection Ears, Nose, Throat Exam: moist mucous membranes Neck Exam: normal inspection Respiratory Exam: normal breath sounds, lungs clear, No crackles/rales, No rhonchi, No wheezing Cardiovascular Exam: regular rate/rhythm, normal heart sounds, No murmur Gastrointestinal/Abdomen Exam: soft, normal bowel sounds, No tenderness, No distention, No mass, No guarding, No rebound Extremity Exam: normal inspection, No pedal edema, No swelling OBJECTIVE DATA Vital Signs: Vital Signs - 24 hr Temp Pulse Resp BP Pulse Ox 07/18/21 06:50 97.9 F 67 16 159/67 95 07/18/21 04:00 98.4 F 67 16 131/63 98 07/17/21 20:00 98.7 F 60 16 150/67 97 07/17/21 17:00 16 07/17/21 16:00 97.5 F 60 13 121/51 99 07/17/21 13:42 14 07/17/21 12:00 9837 F 67 12 140/74 99 07/17/21 08:00 99.5 F 60 16 134/60 98 Pain Assessment - Last Documented Pain Intensity 0 Intake and Output: Intake & Output 07/15/21 07/16/21 07/17/21 07/18/21 11:59 11:59 11:59 11:59 Intake Total 499 1975 1910 Output Total 300 1750 1700 Balance 199 225 210 Weight 58.1 kg 59.2 kg 59.5 kg Lab Results: Lab Results-Last 24 Hours 07/15/21 Range/Units 00:34 Total T3 83 (71-180) ng/dL Thyroperoxidase Ab 408 H (0-34) IU/mL Thyroglobulin Antibody <1.0 (0.0-0.9) IU/mL Radiology Exams: Radiology Procedures Category Date Time Status ECHO W/2D AND DOPPLER [US] Routine Exams 07/17/21 12:18 Taken PULMONARY PERF VENTILATION [NUCMED] Routine Exams 07/17/21 09:55 Completed Assessment/Plan (1) Difficulty in walking Current Visit: Yes Status: Acute Code(s): R26.2 - DIFFICULTY IN WALKING, NOT ELSEWHERE CLASSIFIED (2) Heart murmur Current Visit: Yes Status: Resolved Assessment & Plan: not apparent this morning. She did have echo yesterday. Code(s): R01.1 - CARDIAC MURMUR, UNSPECIFIED (3) UTI (urinary tract infection) Current Visit: Yes Status: Suspected Qualifiers: Urinary tract infection type: acute cystitis Hematuria presence: without hematuria Qualified Code(s): N30.00 - Acute cystitis without hematuria Assessment & Plan: On rocephin 1 g daily, day #3. There was no urine culture done at [facility] during her recent visit to ER. Will continue to treat for at least 5d. Code(s): N39.0 - URINARY TRACT INFECTION, SITE NOT SPECIFIED (4) Change in mental state Current Visit: Yes Status: Acute Qualifiers: Altered mental status type: unspecified Qualified Code(s): R41.82 - Altered mental status, unspecified Assessment & Plan: She is somewhat more oriented today compared with yesterday morning for me. Teleneurology consult to be done; I have some concern for Zakia's encephalopathy, but I don't know if the concurrent muscle weakness is consistent with that. If teleneurology suspects that, I anticipate pt may need EEG and LP to r/o other pathologies prior to initiating treatment with steroids. 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
--- NOTE | 2021-07-18 08:25 | ECHO ---
DATE OF PROCEDURE: 07/17/2021 CLINICAL INFORMATION: New cardiac murmur. The M-mode 2D, and Doppler echocardiogram including color flow Doppler shows the left ventricle is normal in size at 4.2 cm. There is no thrombus present. The septal wall thickness is 1.0 cm. The left ventricular posterior wall thickness is 1.0 cm. There is normal contractility of the left ventricle. The ejection fraction is estimated to be 65 to 70%. The mitral valve E/A inflow velocity ratio is decreased at 0.7 consistent with possible impaired left ventricular relaxation. The right ventricle is dilated. The left atrium is 2.9 cm. The interatrial septum is intact. The right atrium is normal. The aortic valve opens well. There is mild sclerosis present. It is trileaflet. There is no aortic regurgitation. There is mitral valve leaflet thickening associated with mild mitral regurgitation. There is mild tricuspid regurgitation. The right ventricular systolic pressure is calculated to be 30 mm of Mercury. There is evidence of right atrial and right ventricular electrodes present. The pulmonic valve is not well visualized. The aortic root is normal at 2.8 cm. There is no pericardial effusion present. IMPRESSION: 1) MILD MITRAL REGURGITATION. 2) MILD TRICUSPID REGURGITATION. 3) NORMAL CONTRACTILITY OF THE LEFT VENTRICLE. 4) POSSIBLE IMPAIRED LEFT VENTRICULAR RELAXATION. 5) RIGHT ATRIAL AND RIGHT VENTRICULAR ELECTRODES.
[2021-07-18] MEDS: Zestril 10 MG PO SCH (08:42)
[2021-07-18] MEDS: Mirapex 0.5 MG Tablet PO SCH ×3 (08:42→21:35)
[2021-07-18] MEDS: Toprol Xl 50 MG PO SCH (08:42)
[2021-07-18] MEDS: BUSPAR 5 MG PO SCH ×3 (08:43→21:37)
[2021-07-18] MEDS: MELOXICAM PO SCH (08:44)
[2021-07-18] MEDS: Pepcid 20 MG VIAL IV SCH ×2 (08:44→21:33)
[2021-07-18] MEDS: ENOXAPARIN SODIUM SQ SCH (08:46)
[2021-07-18] MEDS: ROCEPHIN 1 Gm-D5w 50 ml Bag** 1 G/50 ML IVPB IV SCH (21:37)
[2021-07-19] MEDS: Sodium Chloride 0.9% 1000 ML 1,000 ML IV SCH (05:21)
[2021-07-19 05:22] LABS: BASOPHIL % 0.3 % (0.0-0.4); Basophil (Absolute #) 0.02 (0-0.4); Eosinophil % 5.5 % (0.00-5.0); Eosinophil (Absolute #) 0.36 (0-0.5); Hematocrit 29.9 % (35-47); Hemoglobin 9.3 gm/dl (12.0-16.0); Lymphocyte (Absolute #) 1.63 (1.0-4.6); Lymphocytes % 24.8 % (24.0-44.0); Mean Cell Volume 99.7 fl (78-100); Mean Corpuscular Hgb Concent. 31.1 g/dl (32-36); Mean Platelet Volume 9.7 fl (7.5-11.0); Monocyte (Absolute #) 0.65 (0.0-1.3); Monocytes % 9.9 % (0.0-12.0); Neutrophil % 59.5 % (36.0-66.0); Platelet Count 229 K/mm3 (150-450); White Blood Count 6.6 K/mm3 (4.0-10.5)
[2021-07-19 06:00] LABS: ANION GAP 11.2 MEQ/L (5-15); BLOOD UREA NITROGEN 14 mg/dL (7-17); CHLORIDE 107 mmol/L (98-107); Calcium 8.7 mg/dL (8.4-10.2); Carbon Dioxide 26 mmol/L (22-30); Creatinine 1 0.82 mg/dL (0.52-1.04); EST GLOMERULAR FILTRATION RATE > 60.0 ML/MIN; Glucose 88 mg/dL (74-106); Potassium 3.3 mmol/L (3.5-5.1); SODIUM 141 mmol/L (137-145)
--- NOTE | 2021-07-19 08:41 | PCM.DS ---
Discharge Summary Date of Admission: 07/16/21 20:08 Admitting Physician: CARMENCITA DIALLO DO Consults: Consults on Case 07/15/21 19:34 Consult Neurology ROUTINE Primary Care Provider: JORGE OWEN Allergies Allergies No Known Drug Allergies Allergy (Verified 07/15/21 17:34) Hospital Summary - Hospital Course Hospital Course: Pt is an 80 yo female pt with Parkinson's disease who was admitted from home through ER with increased disorientation and muscle weakness. She had been having intermittent disorientation and hallucinations for the past year or so, but she was much worse recently. She was found to possibly have a UTI (had been recently seen at [facility] ER as well) and was admitted for further observation. CT head was wnl. MRI could not be done d/t pacemaker. D-dimer was initially quite elevated, but VQ scan was normal. She was found to have a murmur on her second hospital day, but echocardiogram was neg for valvular dz and murmur is subsequently not apparent. She recently had her pacemaker interrogated. Pt has been on IV rocephin throughout the stay, day #4 today, and will finish up 5 days then be discontinued. There was no urine culture available from [facility]. Teleneurology consult recommended EEG, which was normal, as well as some lab work. They also recommended outpatient neurology follow up. She had a recent dx of Zakia's thyroiditis and was started on cellcept about a week ago by Dr. Valle, per family report. The med was stopped. Pt had also been taken off her pramipexole for RLS, and family thought perhaps she was walking less due to the resultant leg pain. Pramipexole was restarted. She has had periods of increased and decreased orientation. Has been tolerating po. She was disoriented for manufacturing shift supervisor, apparently, but she appears more oriented for me. She tells me, "Let me sleep. Listen to me, but let me sleep." When I ask for orientation to place, she tells me, "I don't know... [place]." Year is 2020. When I examine her with my cold hands, she asks me, "Are you even alive?" Has been walking with 1 assist - balance is poor. Will be discharged to swing bed today for continued therapy. - Vitals & Intake/Output Vital Signs: Vital Signs Temperature 98.4 F 07/19/21 07:32 Pulse Rate 69 07/19/21 07:32 Respiratory Rate 16 07/19/21 07:32 Blood Pressure 162/72 07/19/21 07:32 O2 Sat by Pulse Oximetry 95 07/19/21 07:32 Intake & Output: Intake & Output 07/16/21 07/17/21 07/18/21 07/19/21 11:59 11:59 11:59 11:59 Intake Total 499 1975 2150 1205 Output Total 300 1750 1700 2250 Balance 199 225 450 -1045 Weight 58.1 kg 59.2 kg 59.5 kg 58.3 kg - Lab Result Diagrams: 07/19/21 04:40 07/19/21 04:40 Lab Results-Last 24 Hrs: Lab Results-Last 24 Hours 07/18/21 07/18/21 07/19/21 Range/Units 16:59 16:59 04:40 WBC 6.6 (4.0-10.5) K/mm3 RBC 3.00 L (4.1-5.4) M/mm3 Hgb 9.3 L (12.0-16.0) gm/dl Hct 29.9 L (35-47) % MCV 99.7 (78-100) fl MCH 31.0 (26-32) pg MCHC 31.1 L (32-36) g/dl RDW 13.0 (11.5-14.0) % Plt Count 229 (150-450) K/mm3 MPV 9.7 (7.5-11.0) fl Gran % 59.5 (36.0-66.0) % Eos # (Auto) 0.36 (0-0.5) Absolute Lymphs (auto) 1.63 (1.0-4.6) Absolute Monos (auto) 0.65 (0.0-1.3) Lymphocytes % 24.8 (24.0-44.0) % Monocytes % 9.9 (0.0-12.0) % Eosinophils % 5.5 H (0.00-5.0) % Basophils % 0.3 (0.0-0.4) % Absolute Granulocytes 3.90 (1.4-6.9) Basophils # 0.02 (0-0.4) ESR 32 H (0-20) mm/hr Sodium (137-145) mmol/L Potassium (3.5-5.1) mmol/L Chloride (98-107) mmol/L Carbon Dioxide (22-30) mmol/L Anion Gap (5-15) MEQ/L BUN (7-17) mg/dL Creatinine (0.52-1.04) mg/dL Estimated GFR ML/MIN Glucose (74-106) mg/dL Calcium (8.4-10.2) mg/dL Creatine Kinase 227 H (30-135) U/L 07/19/21 Range/Units 04:40 WBC (4.0-10.5) K/mm3 RBC (4.1-5.4) M/mm3 Hgb (12.0-16.0) gm/dl Hct (35-47) % MCV (78-100) fl MCH (26-32) pg MCHC (32-36) g/dl RDW (11.5-14.0) % Plt Count (150-450) K/mm3 MPV (7.5-11.0) fl Gran % (36.0-66.0) % Eos # (Auto) (0-0.5) Absolute Lymphs (auto) (1.0-4.6) Absolute Monos (auto) (0.0-1.3) Lymphocytes % (24.0-44.0) % Monocytes % (0.0-12.0) % Eosinophils % (0.00-5.0) % Basophils % (0.0-0.4) % Absolute Granulocytes (1.4-6.9) Basophils # (0-0.4) ESR (0-20) mm/hr Sodium 141 (137-145) mmol/L Potassium 3.3 L (3.5-5.1) mmol/L Chloride 107 (98-107) mmol/L Carbon Dioxide 26 (22-30) mmol/L Anion Gap 11.2 (5-15) MEQ/L BUN 14 (7-17) mg/dL Creatinine 0.82 (0.52-1.04) mg/dL Estimated GFR > 60.0 ML/MIN Glucose 88 (74-106) mg/dL Calcium 8.7 (8.4-10.2) mg/dL Creatine Kinase (30-135) U/L Micro Results-Entire Visit: Microbiology 07/15/21 17:57 Urine Culture - Final Urine, Void NO GROWTH - Radiology Exams Ordered Rad Exams-Entire Visit: Radiology Procedures Category Date Time Status ECHO W/2D AND DOPPLER [US] Routine Exams 07/17/21 12:18 Draft PULMONARY PERF VENTILATION [NUCMED] Routine Exams 07/17/21 09:55 Completed - Procedures and Test Procedures and Tests throughout Hospitalization: Therapy Orders & Screens 07/15/21 19:34 Respiratory Therapy Consult ROUTINE Comment: Reason For Exam: 07/15/21 23:26 OT Screen per Nursing Assess ONCE Comment: Protocol Order Physician Instructions: Greater than 3 points order OT Admission Screening Reason For Exam: Triggered on Admission Diagnosis: weakness, near syncope Open Wound/Cellutlitis/Pressure Ulcers: No Acute Fx/ORIF/Change in wt bearing status: No Severe MUSCULOSKELETAL pain: No ADL Dysfunction: Yes Acute CVA w/Hemiparesis/Hemiplegia: No Decreased Functional Mobility/Strength: Yes Sprain/Strain: No Acute Post-op Mobility Dysfunction: No Total Points: 4 PT Screen per Nursing Assess ONCE Comment: Protocol Order Physician Instructions: Greater than 3 points order PT Admission Screenin Reason For Exam: Triggered on Admission Diagnosis: weakness, near syncope Open Wound/Cellutlitis/Pressure Ulcers: No Acute Fx/ORIF/Change in wt bearing status: No Severe MUSCULOSKELETAL pain: No ADL Dysfunction: Yes Acute CVA w/Hemiparesis/Hemiplegia: No Decreased Functional Mobility/Strength: Yes Sprain/Strain: No Acute Post-op Mobility Dysfunction: No Total Points: 4 ST Screen per Nursing Assess ONCE Comment: Protocol Order Physician Instructions: Greater than [address] Admission Screening Reason For Exam: Triggered on Admission Diagnosis: weakness, near syncope CVA/Dyshpagia/Aphasia: No Cognitive Deficits: Yes: normal for patient Dehydration/Nutrition Deficit: Yes Reflux: No Oral-Motor Difficulties: No Pneumonia: No Fci Resident: No Total Points: 8 07/17/21 08:32 PT Eval & Treat (MD Order) ONCE Reason for Eval:: new, increased weakness Diagnosis: weakness, near syncope 07/18/21 10:31 EEG 41-60 Minutes (Normal) ONCE Comment: Reason For Exam: Diagnosis: ACUTE ONSET NEUROLOGICAL CHANGES, WEAKNESS, SYNCOPAL EPISODE Discharge Exam General Appearance: no apparent distress, alert Neurologic Exam: disoriented, No slurred speech Eye Exam: eyes nml inspection Ears, Nose, Throat Exam: moist mucous membranes Neck Exam: normal inspection Respiratory Exam: normal breath sounds, lungs clear, No crackles/rales, No rhonchi, No wheezing Cardiovascular Exam: regular rate/rhythm, normal heart sounds, No murmur Gastrointestinal/Abdomen Exam: soft, normal bowel sounds, No tenderness, No distention, No mass, No guarding, No rebound Extremity Exam: normal inspection, No pedal edema, No swelling Skin Exam: normal color, warm, dry, No rash Final Diagnosis/Problem List - Final Discharge Diagnosis/Problem (1) Difficulty in walking Current Visit: Yes Status: Acute Assessment & Plan: Improved; now can walk with 1 assist. Code(s): R26.2 - DIFFICULTY IN WALKING, NOT ELSEWHERE CLASSIFIED (2) UTI (urinary tract infection) Current Visit: Yes Status: Suspected Assessment & Plan: Will finish 5d of IV antibiotics. Code(s): N39.0 - URINARY TRACT INFECTION, SITE NOT SPECIFIED (3) Change in mental state Current Visit: Yes Status: Chronic Assessment & Plan: Seems improved since admission. 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 Code(s): I10 - ESSENTIAL (PRIMARY) HYPERTENSION - Discharge Disposition: Swing Bed @ [facility] Condition: Good Prescriptions: No Action lisinopriL [Prinivil] 10 mg PO DAILY Buspirone HCl 5 mg PO TID Meloxicam 1 tab PO DAILY Furosemide 20 mg [Lasix 20 mg] 1 tab PO DAILY Metoprolol Succinate 50 mg [Toprol Xl 50 MG] 1 tab PO DAILY Mycophenolate Mofetil [Cellcept] 1 tab PO BID Cephalexin Monohydrate [Cephalexin] 500 mg PO Q8H Melatonin/Pyridoxine [Melatonin 5 mg Tablet] 1 each PO HS Follow up with: HUBER REYNOLDS [CONSULTING PHYSICIAN] -
[2021-07-19] MEDS: Toprol Xl 50 MG PO SCH (09:13)
[2021-07-19] MEDS: BUSPAR 5 MG PO SCH ×2 (09:13→15:30)
[2021-07-19] MEDS: NORVASC 5 MG PO SCH ×2 (09:14→09:31)
[2021-07-19] MEDS: Zestril 10 MG PO SCH (09:14)
[2021-07-19] MEDS: Mirapex 0.5 MG Tablet PO SCH ×2 (09:15→15:31)
[2021-07-19] MEDS: MELOXICAM PO SCH (09:15)
[2021-07-19] MEDS: Pepcid 20 MG VIAL IV SCH (09:16)
[2021-07-19] MEDS: ENOXAPARIN SODIUM SQ SCH (09:16)
[2021-07-19 16:12] VITALS: BP 128/81; PULSE 62; O2SAT 97
== END 2021-07-19 16:15 | disposition swing bed (61) | DRG 556 ==
LOC: ED 17:25 → MED SURG 22:21 → OBSVTOIN 07-16 20:08
PROVIDERS: ADMIT Family Medicine; ATTEND Family Medicine
DX: R26.2 Difficulty in walking, not elsewhere classified (principal); N39.0 Urinary tract infection, site not specified; R44.3 Hallucinations, unspecified; R53.1 Weakness; R07.9 Chest pain, unspecified; R55 Syncope and collapse; G20 Parkinson's disease; R41.82 Altered mental status, unspecified; I10 Essential (primary) hypertension; E06.3 Autoimmune thyroiditis; Z79.899 Other long term (current) drug therapy; G25.81 Restless legs syndrome; Z95.0 Presence of cardiac pacemaker; R01.1 Cardiac murmur, unspecified; W19.XXXA Unspecified fall, initial encounter; Z20.822 Contact with and (suspected) exposure to COVID-19
CPT/HCPCS: 36415; 51702; 71045; 78582; 80048; 80053; 81001; 82550; 83735; 83880; 84436; 84443; 84480; 84481; 84484; 85025; 85379; 85652; 86140; 86376; 86800; 87086; 93005; 93268; 93306; 94760; 95812; 97110; 97161; 99285; A9540; A9567; G0378; Q3014; U0003; J0696; J1650; A9270-GY

== ENCOUNTER 2021-07-19 14:53 | Inpatient (IN) | payer MEDICARE, OTHER ==
[2021-07-19] MEDS ORDERED: APRESOLINE 20 MG/ML INJ IV PRN (16:32)
[2021-07-19] MEDS ORDERED: MEDICATION INTERVENTION MC SCH ×2 (16:32)
[2021-07-19] MEDS ORDERED: Aplisol ID ONE (16:32)
[2021-07-19] MEDS ORDERED: Ativan 2 MG/1 ML VIAL IV PRN (16:32)
[2021-07-19] MEDS ORDERED: MORPHINE SULFATE 2 MG INJ IV PRN (16:32)
[2021-07-19] MEDS ORDERED: HUMULIN R SQ PRN (16:32)
[2021-07-19] MEDS: Sodium Chloride 0.9% 1000 ML 1,000 ML IV SCH (18:11)
[2021-07-19] MEDS: Pepcid 20 MG VIAL IV SCH (20:39)
[2021-07-19] MEDS: BUSPAR 5 MG PO SCH (20:39)
[2021-07-19] MEDS: Mirapex 0.5 MG Tablet PO SCH (20:40)
[2021-07-19] MEDS ORDERED: ROCEPHIN 1 Gm-D5w 50 ml Bag** 1 G/50 ML IVPB IV SCH (22:00)
[2021-07-20] MEDS: Sodium Chloride 0.9% 1000 ML 1,000 ML IV SCH (02:18)
[2021-07-20] MEDS: Mirapex 0.5 MG Tablet PO SCH ×3 (09:07→22:08)
[2021-07-20] MEDS: Zestril 10 MG PO SCH (09:08)
[2021-07-20] MEDS: Pepcid 20 MG VIAL IV SCH ×2 (09:08→22:08)
[2021-07-20] MEDS: Toprol Xl 50 MG PO SCH (09:08)
[2021-07-20] MEDS: NORVASC 5 MG PO SCH (09:08)
[2021-07-20] MEDS: MELOXICAM PO SCH (09:08)
[2021-07-20] MEDS: BUSPAR 5 MG PO SCH ×3 (09:08→22:08)
[2021-07-20] MEDS: ENOXAPARIN SODIUM SQ SCH (09:08)
[2021-07-21] MEDS: BUSPAR 5 MG PO SCH ×3 (10:12→21:43)
[2021-07-21] MEDS: Mirapex 0.5 MG Tablet PO SCH ×3 (10:12→21:42)
[2021-07-21] MEDS: Zestril 10 MG PO SCH (10:13)
[2021-07-21] MEDS: NORVASC 5 MG PO SCH (10:13)
[2021-07-21] MEDS: MELOXICAM PO SCH (10:13)
[2021-07-21] MEDS: Toprol Xl 50 MG PO SCH (10:13)
[2021-07-21] MEDS: Pepcid 20 MG VIAL IV SCH ×2 (10:14→21:43)
[2021-07-21] MEDS: ENOXAPARIN SODIUM SQ SCH (10:14)
[2021-07-22] MEDS: NORVASC 5 MG PO SCH (09:04)
[2021-07-22] MEDS: Pepcid 20 MG VIAL IV SCH ×2 (09:04→22:05)
[2021-07-22] MEDS: Zestril 10 MG PO SCH (09:04)
[2021-07-22] MEDS: Toprol Xl 50 MG PO SCH (09:04)
[2021-07-22] MEDS: Mirapex 0.5 MG Tablet PO SCH ×3 (09:04→22:05)
[2021-07-22] MEDS: ENOXAPARIN SODIUM SQ SCH (09:04)
[2021-07-22] MEDS: BUSPAR 5 MG PO SCH ×3 (09:04→22:05)
[2021-07-22] MEDS: MELOXICAM PO SCH (09:04)
--- NOTE | 2021-07-22 09:55 | PCM.NOTE ---
Date and Time: 07/22/21 0951 Subjective Assessment: doing ok - Review of Systems Constitutional: No Fever, No Chills Eyes: No Symptoms Ears, Nose, & Throat: No Symptoms Respiratory: No Cough, No Short Of Breath Cardiac: No Chest Pain, No Edema, No Syncope Abdominal/Gastrointestinal: No Abdominal Pain, No Nausea, No Vomiting, No Diarrhea Genitourinary Symptoms: No Dysuria Musculoskeletal: No Back Pain, No Neck Pain Skin: No Rash Neurological: No Dizziness, No Focal Weakness, No Sensory Changes Psychological: No Symptoms Endocrine: No Symptoms Hematologic/Lymphatic: No Symptoms Immunological/Allergic: No Symptoms Objective Exam General Appearance: no apparent distress, alert Neurologic Exam: alert, oriented x 3, cooperative, sensation nml, No motor deficits Skin Exam: normal color, warm, dry Eye Exam: PERRL, EOMI, eyes nml inspection Ears, Nose, Throat Exam: normal ENT inspection, pharynx normal, moist mucous membranes Neck Exam: normal inspection, non-tender, supple, full range of motion Respiratory Exam: normal breath sounds, lungs clear, No respiratory distress Cardiovascular Exam: regular rate/rhythm, normal heart sounds Gastrointestinal/Abdomen Exam: soft, No tenderness, No mass Extremity Exam: normal inspection, normal range of motion Back Exam: normal inspection, normal range of motion, No CVA tenderness, No vertebral tenderness Pelvic Exam: deferred Rectal Exam: deferred OBJECTIVE DATA Vital Signs: Vital Signs - 24 hr Temp Pulse Resp BP Pulse Ox 07/21/21 20:00 96.9 F 69 17 162/70 96 07/21/21 11:00 99.5 F 64 16 132/60 97 Pain Assessment - Last Documented Pain Intensity 0 Intake and Output: Intake & Output 07/19/21 07/20/21 07/21/21 07/22/21 11:59 11:59 11:59 11:59 Intake Total 1432 340 Output Total 1100 2650 1500 850 Balance -1100 -1218 -1160 -850 Weight 59 kg Multi-Disciplinary Progress Notes: Multi-Disciplinary Progress Notes 07/21/21 17:06 Occupational Therapy Note by Aileen Casas WAS SEEN THIS PM AT BEDSIDE. SHE HAD JUST GOT BACK INTO BED WITH PHYSICAL THERAPY HOWEVER SHE DID AGREE TO PERFORM BUE STRENGTHENING AND ENDURANCE ACTIVITY WHILE SITTING UP IN BED. SHE WAS ABLE TO FOLLOW SIMPLE 1 AND 2 STEP COMMANDS AND WAS ABLE TO APPROPRIATELY COMPLETE ALL EXERCISES AND ACTIVITIES GIVEN TO HER BY OTR. OT WAS GETTING READY TO LEAVE SHE DEMO INCREASED CONFUSION AND WAS WANTING TO "GET A RIDE TO THE CONSTITUTION PARTY" AND ASKED OT IF SHE WOULD DRIVE HER. SHE WAS IN BED BUT DEMO. INCREASED RESTLESSNESS AND CONFUSION. MANAGER PHYSICAL WAS PRESENT WITH HER WHEN OT LEFT HER. Initialized on 07/21/21 17:06 - END OF NOTE 07/21/21 11:45 Physical Therapy Note by Hilario Crooks Pt in chair and agreeable to IP PT. Pt alert but oriented only to self. Pt needs cuing for date and location. Pt needs much cuing for sitting at edge of chair for transfer, but completes indep. Pt performs seated exercises well. Pt sit to stand with max cuing and modA. Pt needs modA and significant cuing for standing balance as she falls backward into chair. With cuing she is able to stand with CGA. Pt amb 100' with RW, modA and significant cuing for heel strike or LOB. Pt returns to room transfers to chair with modA and cuing with RW. Pt enjoyed passive calf stretch in attempt to mitigate toe walking due to B calf tightness. Pt in chair with bed alarm on, call light at side and nsg notified. Initialized on 07/21/21 11:45 - END OF NOTE Assessment/Plan (1) Difficulty in walking Current Visit: No Status: Acute Code(s): R26.2 - DIFFICULTY IN WALKING, NOT ELSEWHERE CLASSIFIED (2) Falls Current Visit: Yes Status: Chronic Code(s): W19.XXXA - UNSPECIFIED FALL, INITIAL ENCOUNTER (3) Hypertension Current Visit: Yes Status: Chronic Qualifiers: Hypertension type: primary hypertension Code(s): I10 - ESSENTIAL (PRIMARY) HYPERTENSION (4) Weakness Current Visit: Yes Status: Chronic Code(s): R53.1 - WEAKNESS
--- NOTE | 2021-07-23 07:17 | PCM.NOTE ---
Date and Time: 07/23/21715 Subjective Assessment: doing ok - Review of Systems Constitutional: No Fever, No Chills Eyes: No Symptoms Ears, Nose, & Throat: No Symptoms Respiratory: No Cough, No Short Of Breath Cardiac: No Chest Pain, No Edema, No Syncope Abdominal/Gastrointestinal: No Abdominal Pain, No Nausea, No Vomiting, No Diarrhea Genitourinary Symptoms: No Dysuria Musculoskeletal: No Back Pain, No Neck Pain Skin: No Rash Neurological: No Dizziness, No Focal Weakness, No Sensory Changes Psychological: No Symptoms Endocrine: No Symptoms Hematologic/Lymphatic: No Symptoms Immunological/Allergic: No Symptoms Objective Exam General Appearance: no apparent distress, alert Neurologic Exam: alert, oriented x 3, cooperative, normal mood/affect, nml cerebellar function, sensation nml, No motor deficits Skin Exam: normal color, warm, dry Eye Exam: PERRL, EOMI, eyes nml inspection Ears, Nose, Throat Exam: normal ENT inspection, pharynx normal, moist mucous membranes Neck Exam: normal inspection, non-tender, supple, full range of motion Respiratory Exam: normal breath sounds, lungs clear, No respiratory distress Cardiovascular Exam: regular rate/rhythm, normal heart sounds Gastrointestinal/Abdomen Exam: soft, No tenderness, No mass Extremity Exam: normal inspection, normal range of motion Back Exam: normal inspection, normal range of motion, No CVA tenderness, No vertebral tenderness Pelvic Exam: deferred Rectal Exam: deferred OBJECTIVE DATA Vital Signs: Vital Signs - 24 hr Temp Pulse Resp BP Pulse Ox 07/22/21 20:00 98.9 F 67 18 167/70 100 07/22/21 11:00 97.7 F 66 16 124/61 99 Pain Assessment - Last Documented Pain Intensity 0 Intake and Output: Intake & Output 07/20/21 07/21/21 07/22/21 07/23/21 11:59 11:59 11:59 11:59 Intake Total 1432 340 240 240 Output Total 2650 4047 670 0717 Balance -2082 -5586 -058 -1269 Weight 59 kg Assessment/Plan (1) Difficulty in walking Current Visit: No Status: Acute Assessment & Plan: Chief Complaint Diagnosis DECONDITIONING R/T ACUTE ONSET AMS, UTI, WEAKNESS, SYNCOPAL EPISODE Allergies Allergy/AdvReac Type Severity Reaction Status Date / Time No Known Drug Allergies Allergy Verified 07/15/21 17:34 Vital Signs (Last 24 hours) Temp Pulse Resp BP Pulse Ox 07/22/21 20:00 98.9 F 67 18 167/70 100 07/22/21 11:00 97.7 F 66 16 124/61 99 Current Medications Generic Name Dose Route Start Last Admin Trade Name Freq PRN Reason Stop Dose Admin Amlodipine Besylate 5 mg 07/20/21 10:00 07/22/21 09:04 Amlodipine Besylate 5 Mg Tablet PO 08/18/21 07:29 5 mg QAM PRABHU Administration Buspirone HCl 5 mg 07/19/21 22:00 07/22/21 22:05 Buspirone Hcl 5 Mg Tablet PO 08/15/21 21:59 5 mg TID PRABHU Administration Enoxaparin Sodium 30 mg 07/20/21 10:00 07/22/21 09:04 Enoxaparin Sodium 30 Mg/0.3 Ml Syringe SQ 08/16/21 09:59 30 mg DAILY PRABHU Administration Famotidine 20 mg 07/19/21 22:00 07/22/21 22:05 Famotidine 20 Mg/1 Vial IV 08/14/21 21:59 20 mg Q12HT PRABHU Administration Hydralazine HCl 10 mg 07/19/21 16:32 Hydralazine Hcl 20 Mg/Ml Vial IV 08/16/21 08:06 [id number] PRN HYPERTENSION Insulin Human Regular 0 unit 07/19/21 16:32 Insulin Regular, Human 1 Unit SQ 08/14/21 19:33 UD PRN HYPERGLYCEMIA Lisinopril 10 mg 07/20/21 10:00 07/22/21 09:04 Lisinopril 10 Mg Tablet PO 08/16/21 09:59 10 mg DAILY PRABHU Administration Lorazepam 1 mg 07/19/21 16:32 Lorazepam 2 Mg/1 Ml 2 Mg Vial IV 08/16/21 19:05 Q4H PRN PRN ANXIETY/AGITATION Meloxicam 15 mg 07/20/21 10:00 07/22/21 09:04 Meloxicam 7.5 Mg Tablet PO 08/15/21 15:59 15 mg DAILY PRABHU Administration Metoprolol Succinate 50 mg 07/20/21 10:00 07/22/21 09:04 Metoprolol Succinate 50 Mg Tablet.Sa PO 08/15/21 15:59 50 mg DAILY PRABHU Administration Pramipexole Dihydrochloride 0.125 mg 07/19/21 22:00 07/22/21 22:05 Pramipexole Di-Hcl 0.5 Mg Tab PO 08/16/21 09:59 0.125 mg TID PRABHU Administration Discontinued Medications Generic Name Dose Route Start Last Admin Trade Name Freq PRN Reason Stop Dose Admin Sodium Chloride 1,000 mls @ 50 mls/hr 07/19/21 16:32 07/20/21 02:18 Sodium Chloride 0.9% 1000 Ml IV 08/14/21 19:44 50 mls/hr .Q20H PRABHU Administration Ceftriaxone Sodium/Dextrose 1 g in 50 mls @ 100 mls/hr 07/19/21 22:00 07/19/21 20:39 Rocephin 1 Gm-D5w 50 Ml Bag IV 07/20/21 23:30 100 mls/hr HS PRABHU Administration Miscellaneous Information 1 each 07/19/21 16:32 Medication Intervention 1 Each Each 08/15/21 16:14 .RN TO CHECK PRABHU Miscellaneous Information 1 each 07/19/21 16:32 Medication Intervention 1 Each Each 08/15/21 16:14 .RN TO CHECK PRABHU Morphine Sulfate 2 mg 07/19/21 16:32 Morphine Sulfate 2 Mg/Ml Inj IV 07/20/21 19:33 Q4H PRN PRN PAIN Tuberculin PPD 5 unit 07/19/21 16:32 07/21/21 11:54 Aplisol (Tuberculin,Purif.Prot.Deriv.) 5 Unit/0.1 Ml Ml ID 07/19/21 16:33 5 unit ONCE ONE Administration Intake & Output (Last 24 hours) 07/20/21 07/21/21 07/22/21 07/23/21 11:59 11:59 11:59 11:59 Intake Total 1432 340 240 240 Output Total 2650 9384 756 0422 Balance -1214 -1160 -610 -1260 Weight 59 kg Orders (Last 24 hours) Category Date Time Status Weight,Daily 2XW Care 07/26/21 06:00 Active BMP Q14D Lab 08/02/21 04:00 Ordered Code(s): R26.2 - DIFFICULTY IN WALKING, NOT ELSEWHERE CLASSIFIED (2) Falls Current Visit: Yes Status: Chronic Code(s): W19.XXXA - UNSPECIFIED FALL, INITIAL ENCOUNTER (3) Hypertension Current Visit: Yes Status: Chronic Qualifiers: Hypertension type: primary hypertension Code(s): I10 - ESSENTIAL (PRIMARY) HYPERTENSION (4) Weakness Current Visit: Yes Status: Chronic Code(s): R53.1 - WEAKNESS
[2021-07-23] MEDS: Mirapex 0.5 MG Tablet PO SCH ×3 (09:00→21:02)
[2021-07-23] MEDS: NORVASC 5 MG PO SCH (09:01)
[2021-07-23] MEDS: Zestril 10 MG PO SCH (09:01)
[2021-07-23] MEDS: BUSPAR 5 MG PO SCH ×3 (09:02→21:02)
[2021-07-23] MEDS: Toprol Xl 50 MG PO SCH (09:02)
[2021-07-23] MEDS: Pepcid 20 MG VIAL IV SCH ×2 (09:02→21:02)
[2021-07-23] MEDS: MELOXICAM PO SCH (09:02)
[2021-07-23] MEDS: ENOXAPARIN SODIUM SQ SCH (09:03)
[2021-07-24 07:48] VITALS: O2SAT 98
[2021-07-24] MEDS: Toprol Xl 50 MG PO SCH (10:22)
[2021-07-24] MEDS: BUSPAR 5 MG PO SCH ×3 (10:22→21:26)
[2021-07-24] MEDS: Pepcid 20 MG VIAL IV SCH (10:22)
[2021-07-24] MEDS: MELOXICAM PO SCH (10:22)
[2021-07-24] MEDS: Mirapex 0.5 MG Tablet PO SCH ×3 (10:22→21:26)
[2021-07-24] MEDS: Zestril 10 MG PO SCH (10:22)
[2021-07-24] MEDS: NORVASC 5 MG PO SCH (10:25)
[2021-07-24] MEDS: ENOXAPARIN SODIUM SQ SCH (10:25)
[2021-07-24] MEDS: Pepcid 20 MG PO SCH (21:27)
[2021-07-25 08:04] VITALS: BP 113/55; PULSE 70
[2021-07-25] MEDS: MELOXICAM PO SCH (09:23)
[2021-07-25] MEDS: Mirapex 0.5 MG Tablet PO SCH ×2 (09:24→15:32)
[2021-07-25] MEDS: BUSPAR 5 MG PO SCH ×2 (09:25→15:32)
[2021-07-25] MEDS: Zestril 10 MG PO SCH (09:25)
[2021-07-25] MEDS: Pepcid 20 MG PO SCH (09:25)
[2021-07-25] MEDS: NORVASC 5 MG PO SCH (09:25)
[2021-07-25] MEDS: Toprol Xl 50 MG PO SCH (09:25)
[2021-07-25] MEDS: ENOXAPARIN SODIUM SQ SCH (09:26)
--- NOTE | 2021-07-25 17:51 | PCM.DS ---
Discharge Summary Date of Admission: 07/19/21 16:15 Admitting Physician: JORGE OWEN Primary Care Provider: JORGE OWEN Allergies Allergies No Known Drug Allergies Allergy (Verified 07/15/21 17:34) Hospital Summary - Hospital Course Hospital Course: Pt is an 80 yo female pt of mine from [facility] with Parkinson's dz, chronic renal insufficiency, HTN, hyperlipidemia, and OA who was admitted from acute care after being treated for AMS, muscle weakness, and UTI. She finished 5d of rocephin IV. She has been receiving therapy and has been doing great - can now walk with walker and 1 assist. She is tolerating po very well. She had a torrez catheter for 10d but after it was removed today she has urinated several times on her own and has not been incontinent of urine. Her daughter is set up at home with bedside commode and other equipment, has sitters arranged, and would like to take her mother home today. She will be discharged on her RLS meds and without cellcept (see acute care discharge summary). F/u with me in office in 1 week. - Vitals & Intake/Output Vital Signs: Vital Signs Temperature 97.5 F 07/25/21 07:00 Pulse Rate 70 07/25/21 07:00 Respiratory Rate 16 07/25/21 07:00 Blood Pressure 113/55 07/25/21 07:00 O2 Sat by Pulse Oximetry 98 07/25/21 07:00 Intake & Output: Intake & Output 07/23/21 07/24/21 07/25/21 07/26/21 11:59 11:59 11:59 11:59 Intake Total 640 340 360 360 Output Total 1500 1600 300 Balance -860 -1260 60 360 Weight 59 kg - Procedures and Test Procedures and Tests throughout Hospitalization: Therapy Orders & Screens 07/19/21 16:32 PT Eval & Treat ( Order) ONCE Reason for Eval:: WEAKNESS Diagnosis: ACUTE ONSET NEUROLOGICAL CHANGES, WEAKNESS, SYNCOPAL EPISODE 07/20/21 06:43 PT Clarification Order ROUTINE Comment: Physician Instructions: Reason For Exam: PT Clarification: P.T. TO RX 5X/WK TO ADDRESS FUNCTIONAL MOBILITY AND GAIT TRAINING, THER EX, BALANCE ACTIVITIES, AND PT AND FAMILY ED. RE: SAFETY AWARENESS AND HEP TO MAXIMIZE FUNCTIONAL POTENTIAL FOR D/C. 07/20/21 09:37 OT Eval and Treat (MD Order) ROUTINE Comment: Consulting Provider: JORGE OWEN Physician Instructions: Reason For Exam: DECONDITIONING R/T ACUTE ONSET AMS, UTI, WEAKNESS Evaluate: Yes Treat: Yes Reason for Evaluation: WEAKNESS, PHYSICAL DECONDITIONING Diagnosis: DECONDITIONING R/T ACUTE ONSET AMS, UTI, WEAKNESS, SYNCOPAL EPISODE 07/20/21 18:06 OT Clarification Order ROUTINE Comment: Physician Instructions: Reason For Exam: OT Clarification: OT TO EVAL AND TX 5X/WK TO ADDRESS ADL AND FUNCTIONAL MOBILITY RETRAINING, THERAPUETIC EXERCISES AND ACTIVITIES, PT/FAMILY EDUCATION, A.E./DMR EDUCATION TO MAXIMIZE HER INDEPENDENCE FOR RETURN TO LEAST RESTRICTIVE SETTING. Discharge Exam General Appearance: no apparent distress, alert, other (initially on the toilet; walks with walker and standby assist to her chair. Requires assistance to rise from chair/toilet and to sit back down.) Neurologic Exam: other (oriented to person and year; knows she is in [place] but unsure what facility.) Eye Exam: eyes nml inspection Neck Exam: normal inspection Respiratory Exam: normal breath sounds, lungs clear, No crackles/rales, No rhonchi, No wheezing Cardiovascular Exam: regular rate/rhythm, normal heart sounds, No murmur Gastrointestinal/Abdomen Exam: soft, normal bowel sounds, No tenderness, No mass, No guarding, No rebound Extremity Exam: normal inspection, No pedal edema, No swelling Skin Exam: normal color, warm, dry, No rash Final Diagnosis/Problem List - Final Discharge Diagnosis/Problem (1) Weakness Current Visit: Yes Status: Chronic Assessment & Plan: improved Code(s): R53.1 - WEAKNESS (2) Difficulty in walking Current Visit: No Status: Acute Assessment & Plan: much improved Code(s): R26.2 - DIFFICULTY IN WALKING, NOT ELSEWHERE CLASSIFIED (3) UTI (urinary tract infection) Current Visit: No Status: Resolved Code(s): N39.0 - URINARY TRACT INFECTION, SITE NOT SPECIFIED (4) Parkinson disease Current Visit: No Status: Chronic Code(s): G20 - PARKINSON'S DISEASE (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 Code(s): I10 - ESSENTIAL (PRIMARY) HYPERTENSION - Discharge Disposition: Home, Self-Care Condition: Good Prescriptions: New Pramipexole Di-HCl 0.5 mg [Mirapex 0.5 MG Tablet] 0.125 mg PO TID #90 tab Amlodipine Besylate 5 mg [Norvasc 5 mg] 5 mg PO QAM #30 tablet Continue lisinopriL [Prinivil] 10 mg PO DAILY Buspirone HCl 5 mg PO TID Meloxicam 1 tab PO DAILY Furosemide 20 mg [Lasix 20 mg] 1 tab PO DAILY Metoprolol Succinate 50 mg [Toprol Xl 50 MG] 1 tab PO DAILY Melatonin/Pyridoxine [Melatonin 5 mg Tablet] 1 each PO HS Discontinued Mycophenolate Mofetil [Cellcept] 1 tab PO BID Cephalexin Monohydrate [Cephalexin] 500 mg PO Q8H Instructions: Preventing Falls in the Older Adult Follow up with: JORGE OWEN [Primary Care Provider] - Forms: Discharge Instructions
== END 2021-07-25 18:15 | disposition home or self-care (01) | DRG 948 ==
LOC: MED SURG 16:15
PROVIDERS: ADMIT Family Medicine; ATTEND Family Medicine
DX: R53.1 Weakness (principal); N39.0 Urinary tract infection, site not specified; R44.3 Hallucinations, unspecified; R26.2 Difficulty in walking, not elsewhere classified; G20 Parkinson's disease; E06.3 Autoimmune thyroiditis; R41.82 Altered mental status, unspecified; I10 Essential (primary) hypertension; Z79.899 Other long term (current) drug therapy; W19.XXXA Unspecified fall, initial encounter
CPT/HCPCS: J0696; J1650; 97110-GP; A9270-GY

== ENCOUNTER 2021-09-25 21:44 | Emergency (ER) | payer MEDICARE, OTHER ==
[2021-09-25 22:02] VITALS: BP 110/56; PULSE 71; O2SAT 94
[2021-09-25] MEDS ORDERED: SUBLIMAZE 100 MCG/2 ML ONE (23:22)
[2021-09-25] MEDS ORDERED: Zofran 4 MG/2 ML VIAL ONE (23:22)
[2021-09-25] MEDS: Zofran 4 MG/2 ML VIAL IV ONE (23:28)
[2021-09-25] MEDS: SUBLIMAZE 100 MCG/2 ML IV ONE (23:28)
--- NOTE | 2021-09-26 00:09 | ERPHSYRPT ---
- History of Present Illness Source: patient, other (Daughter) Exam Limitations: other (Pt poor historian) Patient Subjective Stated Complaint: Right hip pain Triage Nursing Assessment: Patient brought into ED via EMS and transferred to bed per 2. Patient Alert with confusion noted. Patient's daughter at bedside. Patient's daughter reports around 1900 she received a call from her father stating patient was sitting on the gound and unable to get up. Patient had just gotten back from dinner and was unable to get out of the vehicle. Patient then was not able to bear weight to right leg. Patient complains of pain 9/10 to right hip and pelvis. Shortening of right leg noted. No external/internal rotation noted. Patient denies fall or injury. Physician History: 81 yo wf brought to ER per EMS w R hip pain. Pt denies fall but has memory prob lems. Pain began earlier today, and she is unable to bear weight. She has a walker but ambulates typically wo any assistance device. Method of Injury: unknown Occurred: other (Today) Quality: constant Severity of Pain-Max: severe Severity of Pain-Current: severe Lower Extremities Pain: hip: right Modifying Factors: Improves With: movement Associated Symptoms: unable to bear weight Allergies/Adverse Reactions: No Known Drug Allergies Allergy (Verified 09/25/21 21:52) Home Medications: Buspirone HCl 5 mg PO TID 10/09/19 [History] lisinopriL [Prinivil] 10 mg PO DAILY 10/09/19 [History] Furosemide 20 mg [Lasix 20 mg] 1 tab PO DAILY 07/15/21 [History] Melatonin/Pyridoxine [Melatonin 5 mg Tablet] 1 each PO HS 07/15/21 [History] Meloxicam 1 tab PO DAILY 07/15/21 [History] Metoprolol Succinate 50 mg [Toprol Xl 50 MG] 1 tab PO DAILY 07/15/21 [History] Hx Tetanus, Diphtheria Vaccination/Date Given: No Hx Influenza Vaccination/Date Given: Yes (2019) Hx Pneumococcal Vaccination/Date Given: No Immunizations Up to Date: Yes Travel Risk - International Travel Have you traveled outside of the country in past 3 weeks: No - Coronavirus Screening Are you exhibiting any of the following symptoms?: No Close contact with a COVID-19 positive Pt in past 14-21 Days: No - Vaccine Status Have you recieved a Covid-19 vaccination: Yes Account Management Specialist: Moderna - Vaccination Dates Date of 2cond Vaccination (if applicable): 11/2020 - Review of Systems Constitutional: No Symptoms Eyes: No Symptoms Ears, Nose, & Throat: No Symptoms Respiratory: No Symptoms Cardiac: No Symptoms Genitourinary Symptoms: No Symptoms Skin: No Symptoms Neurological: No Symptoms Psychological: No Symptoms Endocrine: No Symptoms Hematologic/Lymphatic: No Symptoms Immunological/Allergic: No Symptoms - Past Medical History Pertinent Past Medical History: Yes Neurological History: Other ENT History: No Pertinent History Cardiac History: Other Respiratory History: No Pertinent History Endocrine Medical History: No Pertinent History Musculoskeletal History: No Pertinent History GI Medical History: No Pertinent History History: No Pertinent History Psycho-Social History: Anxiety Female Reproductive Disorders: Breast Cancer Other Medical History: PPM, Parkinson - Past Surgical History Past Surgical History: Yes Neuro Surgical History: No Pertinent History Cardiac: Pacemaker Respiratory: No Pertinent History Gastrointestinal: No Pertinent History Genitourinary: No Pertinent History Musculoskeletal: No Pertinent History Female Surgical History: Mastectomy, Lumpectomy Other Surgical History: cataract - Social History Smoking Status: Never smoker Exposure to second hand smoke: No Drug Use: none Patient Lives Alone: No Significant Family History: no pertinent family hx - Female History Hx Now: No - Nursing Vital Signs Nursing Vital Signs: Initial Vital Signs Temperature 95.9 F 09/25/21 21:53 Pulse Rate 71 09/25/21 21:53 Respiratory Rate 18 09/25/21 21:53 Blood Pressure 110/56 09/25/21 21:53 O2 Sat by Pulse Oximetry 94 L 09/25/21 21:53 Pain Scale Pain Intensity 4 WNL - Physical Exam General Appearance: no apparent distress Eyes, Ears, Nose, Throat Exam: normal ENT inspection, TMs normal, pharynx normal, moist mucous membranes Neck Exam: normal inspection, non-tender, supple, full range of motion (C-spine NTTP) Cardiovascular/Respiratory Exam: normal breath sounds, regular rate/rhythm Gastrointestinal/Abdominal Exam: non-tender, soft Back Exam: normal inspection, normal range of motion Hips Exam: right: bone tenderness (R leg shortened and externally rotated) Legs Exam: bilateral leg: non-tender, normal inspection, normal range of motion Knees Exam: bilateral knee: non-tender, normal inspection, normal range of motion, no evidence of injury Ankle Exam: bilateral ankle: non-tender, normal inspection, normal range of motion, no evidence of injury Foot Exam: bilateral foot: non-tender, normal inspection, normal range of motion, no evidence of injury DTR - Lower Extremities Exam: knee (R): 2+, knee (L): 2+ Neuro/Tendon Exam: normal sensation, normal motor functions, normal tendon functions, responds to pain Mental Status Exam: alert, cooperative, disoriented to time Skin Exam: normal color, warm, dry SpO2 Interpretation: normal SpO2: 94 O2 Delivery: Room Air - Course Nursing assessment & vital signs reviewed: Yes - CT Exams Pelvis CT Interpretation: Tele-radiologist Report (Acute displaced and impacted subcapital R femoral fx) Ordered Tests: Active Orders 24 hr Category Date Time Status PELVIS WITHOUT CONTRAST [CT] Stat Exams 09/25/21 23:15 Taken Medication Summary Discontinued Medications Generic Name Dose Route Start Last Admin Trade Name Freq PRN Reason Stop Dose Admin Fentanyl Citrate 25 mcg 09/25/21 23:16 09/25/21 23:28 Fentanyl Citrate 100 Mcg/2 Ml* Vial IV 09/25/21 23:17 25 mcg STAT ONE Administration Fentanyl Citrate Confirm 09/25/21 23:22 Fentanyl Citrate 100 Mcg/2 Ml* Vial Administered 09/25/21 23:23 Dose 100 mcg .ROUTE .STK-MED ONE Ondansetron HCl 4 mg 09/25/21 23:16 09/25/21 23:28 Ondansetron Hcl 4 Mg/2 Ml Vial IV 09/25/21 23:17 4 mg STAT ONE Administration Ondansetron HCl Confirm 09/25/21 23:22 Ondansetron Hcl 4 Mg/2 Ml Vial Administered 09/25/21 23:23 Dose 4 mg .ROUTE .STK-MED ONE - Progress Progress: improved Progress Note: 09/26/21 04:42 Fentanyl 25umg/4mg IV Zofran Pt accepted by Abraham at [facility] and report given to ER physician Pt stable upon transfer to [facility] - Departure Departure Disposition: Transfer Clinical Impression: Hip fracture Condition: Stable Critical Care Time: No Referrals: JORGE OWEN [Primary Care Provider] - Follow up/PCP as directed Instructions: Hip Fracture (DC)
--- NOTE | 2021-09-26 09:42 | XRAY ---
Indication: Right hip pain. Fracture. Multiple contiguous axial images obtained through the pelvis only with special attention to the osseous structures. Sagittal and coronal reformatted images obtained. Comparison: September 13, 2005. Proximal right femur demonstrates new impacted and angulated subcapital acute fracture. No other acute fracture, dislocation, or suspicious bony lesions. Osseous structures demineralized consistent with patient's age. Visualized lower lumbar spine demonstrates mild bilateral degenerative facet arthropathy. Urinary bladder is markedly distended concerning for all obstructor versus neurogenic bladder. Remaining visualized bowel loops, uterus, and vascularity are unremarkable for noncontrast exam. Impression: 1. Impacted and angulated right subcapital femur fracture. 2. Distended urinary bladder. Rule out outlet obstruction versus neurogenic bladder. 3. Osteopenia and lower lumbar degenerative facet arthropathy. Comment: Preliminary interpretation made by [facility]. No critical discrepancy.
== END 2021-09-26 02:23 | disposition short-term general hospital (02) ==
LOC: ED 21:44
DX: S72.011A Unspecified intracapsular fracture of right femur, initial encounter for closed fracture (principal)
CPT/HCPCS: 72192; 96374; 96375; 99284; J2405; J3010

== ENCOUNTER 2021-12-12 10:39 | Day surgery (SDC) | payer MEDICARE, OTHER ==
[~2021-12-12 10:39] MED LIST: BUPIVACAINE 0.5% VIAL IJ ONE; XYLOCAINE 1% HCL 20 ML MDV ONE
[2021-12-12] MEDS ORDERED: CEFAZOLIN 2 GM-D5W BAG** 2 GM/50 ML ML IV SCH (11:00)
[2021-12-12] MEDS ORDERED: CEFAZOLIN 2 GM-D5W BAG** 2 GM/50 ML ML IV ONE (11:14)
[2021-12-12] MEDS ORDERED: Lactated Ringers 1,000 ML IV ONE (11:14)
[2021-12-12] MEDS ORDERED: Lactated Ringers 1,000 ML IV SCH (11:30)
[2021-12-12 11:46] LABS: ALBUMIN 3.9 g/dL (3.5-5.0); ALKALINE PHOSPHATASE 78 U/L (38-126); ANION GAP 10.7 MEQ/L (5-15); BLOOD UREA NITROGEN 16 mg/dL (7-17); CHLORIDE 103 mmol/L (98-107); Calcium 9.4 mg/dL (8.4-10.2); Carbon Dioxide 30 mmol/L (22-30); Creatinine 1 0.76 mg/dL (0.52-1.04); EST GLOMERULAR FILTRATION RATE > 60.0 ML/MIN; Glucose 96 mg/dL (74-106); Potassium 4.7 mmol/L (3.5-5.1); SGOT/AST 37 U/L (14-36); SODIUM 139 mmol/L (137-145)
[2021-12-12 11:53] LABS: SGPT/ALT 5 U/L (0-35)
[2021-12-12] MEDS ORDERED: SUBLIMAZE 100 MCG/2 ML ONE (12:34)
[2021-12-12] MEDS ORDERED: DIPRIVAN 200 MG/20 ML IV ONE (12:34)
[2021-12-12 14:09] VITALS: BP 149/68; PULSE 71; O2SAT 97
--- NOTE | 2021-12-13 08:03 | OP ---
SURGERY DATE/TIME: 12/12/2021 1229 PREOPERATIVE DIAGNOSES: 1) Contracture of muscle right lower leg. 2) Acquired equinus deformity of foot. 3) Difficulty with ambulation. 4) Unsteady gait. POSTOPERATIVE DIAGNOSES: 1) Contracture of muscle right lower leg. 2) Acquired equinus deformity of foot. 3) Difficulty with ambulation. 4) Unsteady gait. PROCEDURE: Percutaneous Tendo Achilles lengthening. SURGEON: Pee Crockett DPM. PRICING INTERN: None. ANESTHESIA: General. HEMOSTASIS: Pressure dressing. ESTIMATED BLOOD LOSS: Less than 2 cc. MATERIALS: 3-0 Nylon. INJECTABLES: 20 cc of 1:1 mixture of 1% lidocaine plain and 0.5% bupivacaine plain injected in a V-block type fashion postoperatively. INDICATION FOR SURGERY: Meagan is a very pleasant 81-year-old female who presented to my clinic with concerns over an acquired deformity of equinus following a hip fracture and over the subsequent months, the patient was fixed in a soft tissue equinus. 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 X-rays demonstrated no osseous blocks from that standpoint. The patient wanted to proceed with a way to weigh bear as quickly as possible as she has been unable to do so normally like she has in the past. With this all risks, benefits and complications of surgical intervention were discussed with the patient including but not limited to possibility of delayed healing, nonhealing, possibility of Achilles tendon rupture, possibility of infection, hematoma or seroma albeit low likelihood and possibility of calcaneal gait as a result. The patient understands these risks and wishes to proceed at this time. She understands that there are no guarantees as to the outcomes of surgical intervention. Plenty of time was allowed for the patient as well as her daughter to ask questions in regards to surgery, which were answered to the patient and her daughter's apparent satisfaction. It is with that we decided to proceed. DESCRIPTION OF PROCEDURE AND FINDINGS: The patient is brought into the OR and placed on the OR table in the supine position. Following this, a general anesthesia was administered until the patient was sedated. The right lower extremity was then prepped and draped in typical sterile fashion. Following this an 11 blade was utilized to make an incision at the midline of the Achilles tendon perpendicular to the longitudinal axis of the Achilles tendon and slowly tented towards the medial aspect of the skin. This first incision was made at approximately 2 cm from the Achilles tendon insertion. Following this a similar procedure was performed 5 cm on the lateral aspect of the Achilles tendon and then once again performed at 8 cm. As we progressively moved proximal, the tendon gradually lengthened until the foot was in a 90-degree orientation relative to the longitudinal axis of the lower leg. Following this, a 3-0 Nylon was utilized to coapt the skin edges. Following this, a well-padded dressing consisting of Betadine, Adaptic, 4x4, Kerlix, cast padding and a well-padded posterior splint was applied with the foot at 90 degrees relative to longitudinal axis of the leg. The patient then was reversed from anesthesia and returned to the postoperative anesthesia care unit with vital signs stable and vascular status intact. The patient handled the procedure without complication. Postoperative orders as indicated in the patient's discharge chart.
== END 2021-12-12 14:30 | disposition home or self-care (01) ==
LOC: SDC 10:39
PROVIDERS: ATTEND Podiatrist Foot & Ankle Surgery
DX: M62.461 Contracture of muscle, right lower leg (principal); M21.6X1 Other acquired deformities of right foot; R26.89 Other abnormalities of gait and mobility
CPT/HCPCS: 27606; 36415; 80053; 99100; J0690; J2704; J3010

== ENCOUNTER 2022-03-17 14:38 | Emergency (ER) | payer MEDICARE, OTHER ==
[2022-03-17] MEDS ORDERED: Sodium Chloride 0.9% 1000 ML 1,000 ML IV STA (15:09)
--- NOTE | 2022-03-17 15:40 | ERPHSYRPT ---
- History of Present Illness Time Seen by Provider: 03/17/22 15:34 Source: patient, family Exam Limitations: no limitations Patient Subjective Stated Complaint: Pt c/o weakness, tail bone pain, new incontinence, loss of appetite, doesn't want to drink, confusion Triage Nursing Assessment: Pt brought to the ER by her daughter, hypertensive, rates overall pain as 8/10, states that she has peed the bed a couple of times lately for the first time in her life, daughter states that she is getting confused, hx of parkinsons and breast cancer with a left mastectomy, pulses normal, skin n/w/d, doesn't appear to be in any distress Physician History: Pt c/o weakness, tail bone pain, new incontinence, loss of appetite, doesn't want to drink, confusion states that she has peed the bed a couple of times lately for the first time in her life, daughter states that she is getting confused, hx of parkinsons and breast cancer with a left mastectomy,Patient and family denies any fever chills blood in the urine or stool abdominal pain nausea or vomiting. Timing/Duration: day(s) (3-4 days) Severity: mild Associated Symptoms: loss of appetite, malaise, weakness Allergies/Adverse Reactions: No Known Drug Allergies Allergy (Verified 03/17/22 15:10) Home Medications: Buspirone HCl 5 mg PO TID 10/09/19 [History] Meloxicam 7.5 tab PO BID 07/15/21 [History] Donepezil HCl [Aricept] 5 mg PO DAILY 12/11/21 [History] Carbidopa/Levodopa 25/100 mg [Sinemet 25/100 MG] 1 tab PO TID 03/17/22 [His tory] Ergocalciferol (Vitamin D2) [Vitamin D2] 1 cap PO WEEKLY 03/17/22 [History] Melatonin/Pyridoxine [Melatonin 5 mg Tablet] 1 each PO DAILY 03/17/22 [History] Hx Tetanus, Diphtheria Vaccination/Date Given: No Hx Influenza Vaccination/Date Given: Yes (2019) Hx Pneumococcal Vaccination/Date Given: No Travel Risk - International Travel Have you traveled outside of the country in past 3 weeks: No - Coronavirus Screening Are you exhibiting any of the following symptoms?: No Close contact with a COVID-19 positive Pt in past 14-21 Days: No - Vaccine Status Have you recieved a Covid-19 vaccination: Yes [employer]: Moderna - Vaccination Dates Date of 2cond Vaccination (if applicable): 11/2020 - Review of Systems Constitutional: Lethargy, Malaise, Weakness, No Fever, No Chills Eyes: No Symptoms Ears, Nose, & Throat: No Symptoms Respiratory: No Cough, No Dyspnea Cardiac: No Chest Pain, No Edema, No Syncope Abdominal/Gastrointestinal: No Abdominal Pain, No Nausea, No Vomiting, No Diarrhea Genitourinary Symptoms: No Dysuria Musculoskeletal: No Back Pain, No Neck Pain Skin: No Rash Neurological: No Dizziness, No Focal Weakness, No Sensory Changes Psychological: No Symptoms Endocrine: No Symptoms All Other Systems: Reviewed and Negative - Past Medical History Pertinent Past Medical History: Yes Neurological History: Other ENT History: No Pertinent History Cardiac History: Arrhythmia, Other Respiratory History: No Pertinent History Endocrine Medical History: No Pertinent History Musculoskeletal History: No Pertinent History GI Medical History: No Pertinent History History: No Pertinent History Psycho-Social History: Anxiety Female Reproductive Disorders: Breast Cancer Other Medical History: PPM, Parkinson - Past Surgical History Past Surgical History: Yes Neuro Surgical History: No Pertinent History Cardiac: Pacemaker Respiratory: No Pertinent History Gastrointestinal: No Pertinent History Genitourinary: No Pertinent History Musculoskeletal: Joint Replacement Female Surgical History: Mastectomy, Lumpectomy Other Surgical History: cataract, Left breast masectomy - Social History Smoking Status: Never smoker Exposure to second hand smoke: No Drug Use: none Patient Lives Alone: Yes Significant Family History: no pertinent family hx - Nursing Vital Signs Nursing Vital Signs: Initial Vital Signs Temperature 97.8 F 03/17/22 14:56 Pulse Rate 80 03/17/22 14:56 Blood Pressure 140/65 03/17/22 14:56 O2 Sat by Pulse Oximetry 98 03/17/22 14:56 Pain Scale Pain Intensity 8 - Physical Exam General Appearance: mild distress, alert Eye Exam: PERRL/EOMI, eyes nml inspection Ears, Nose, Throat Exam: normal ENT inspection, TMs normal, pharynx normal, moist mucous membranes Neck Exam: normal inspection, non-tender, supple, full range of motion Respiratory Exam: normal breath sounds, lungs clear, No respiratory distress Cardiovascular Exam: regular rate/rhythm, normal heart sounds, normal peripheral pulses Gastrointestinal/Abdomen Exam: soft, normal bowel sounds, No tenderness, No mass Back Exam: normal inspection, normal range of motion, No CVA tenderness, No vertebral tenderness Extremity Exam: normal inspection, normal range of motion, pelvis stable Neurologic Exam: alert, oriented x 3, cooperative, sensation nml, No motor deficits Skin Exam: normal color, warm, dry, No rash Lymphatic Exam: No adenopathy SpO2: 98 - Course Nursing assessment & vital signs reviewed: Yes EKG Interpreted by Me: Sinus Rhythm - Radiology Exams Chest X-ray Interpretation: Reviewed by me, Negative, No Pneumonia Ordered Tests: Active Orders 24 hr Category Date Time Status EKG-ER Only STAT Care 03/17/22 15:09 Active CHEST 1 VIEW (PORTABLE) Stat Exams 03/17/22 15:10 Taken CBC W DIFF Stat Lab 03/17/22 15:30 Completed CMP Stat Lab 03/17/22 15:30 Completed CULTURE,URINE Stat Lab 03/17/22 15:35 Received TROPONIN Stat Lab 03/17/22 15:30 Completed UA W/RFX CULTURE Stat Lab 03/17/22 15:35 Completed Medication Summary Generic Name Dose Route Start Last Admin Trade Name Freq PRN Reason Stop Dose Admin Ceftriaxone Sodium/Dextrose 1 g in 50 mls @ 100 mls/hr 03/17/22 16:50 Rocephin 1 Gm-D5w 50 Ml Bag IV 03/17/22 17:19 STAT STA Discontinued Medications Generic Name Dose Route Start Last Admin Trade Name Freq PRN Reason Stop Dose Admin Sodium Chloride 1,000 mls @ 999 mls/hr 03/17/22 15:09 03/17/22 15:50 Sodium Chloride 0.9% 1000 Ml IV 03/17/22 16:09 999 mls/hr .Q1H1M STA Administration Sodium Chloride Confirm 03/17/22 15:46 Sodium Chloride 0.9% 1000 Ml Administered 03/17/22 15:47 Dose 1,000 mls @ ud .ROUTE .STK-MED ONE Sodium Chloride Confirm 03/17/22 15:49 Sodium Chloride 0.9% 1000 Ml Administered 03/17/22 15:50 Dose 1,000 mls @ ud .ROUTE .STK-MED ONE Lab/Rad Data: Laboratory Result Diagrams 03/17/22 15:30 03/17/22 15:30 Laboratory Results 03/17/22 03/17/22 03/17/22 Range/Units 15:35 15:30 15:30 WBC (4.0-10.5) x10^3/uL RBC (4.1-5.4) x10^6/uL Hgb (12.0-16.0) g/dL Hct (35-47) % MCV (78-100) fL MCH (26-32) pg MCHC (32-36) g/dL RDW (11.5-14.0) % Plt Count (150-450) x10^3/uL MPV (7.5-11.0) fL Gran % (36.0-66.0) % Immature Gran % (Auto) (0.00-0.4) % Nucleat RBC Rel Count (0.00-0.1) % Eos # (Auto) (0-0.5) x10^3/uL Immature Gran # (Auto) (0.00-0.03) x10^3u/L Absolute Lymphs (auto) (1.0-4.6) x10^3/uL Absolute Monos (auto) (0.0-1.3) x10^3/uL Absolute Nucleated RBC (0.00-0.01) x10^3u/L Lymphocytes % (24.0-44.0) % Monocytes % (0.0-12.0) % Eosinophils % (0.00-5.0) % Basophils % (0.0-0.4) % Absolute Granulocytes (1.4-6.9) x10^3/uL Basophils # (0-0.4) x10^3/uL Sodium (137-145) mmol/L Potassium (3.5-5.1) mmol/L Chloride (98-107) mmol/L Carbon Dioxide (22-30) mmol/L Anion Gap (5-15) MEQ/L BUN (7-17) mg/dL Creatinine (0.52-1.04) mg/dL Estimated GFR ML/MIN Glucose (74-106) mg/dL Calcium (8.4-10.2) mg/dL Total Bilirubin (0.2-1.3) mg/dL AST (14-36) U/L ALT (0-35) U/L Alkaline Phosphatase (38-126) U/L Troponin I 0.013 (0.000-0.034) ng/mL Serum Total Protein (6.3-8.2) g/dL Albumin (3.5-5.0) g/dL Urinalys Dipstick Clnc MAIN LAB Urine Color YELLOW (YELLOW) Urine Appearance CLEAR (CLEAR) Urine pH 6.5 (5-6) Ur Specific Clubb 1.015 (1.005-1.025) POC Urine Protein Conf TRACE (Negative) Urine Ketones TRACE (NEGATIVE) Urine Nitrite NEGATIVE (NEGATIVE) Urine Bilirubin NEGATIVE (NEGATIVE) Urine Urobilinogen 1 (0-1) mg/dL Urine Leukocytes NEGATIVE (NEGATIVE) Urine WBC (Auto) 6-10 (0-5) /HPF Urine RBC (Auto) 3-5 (0-2) /HPF U Epithel Cells (Auto) NONE (FEW) /HPF Urine Bacteria (Auto) FEW (NEGATIVE) /HPF Urine RBC TRACE-INTACT (0-5) Aguilar/ul Urine Mucus (Auto) SLIGHT (NEGATIVE) /HPF Ur Culture Indicated? YES Urine Glucose NEGATIVE (NEGATIVE) mg/dL Influenza Type A Ag NEGATIVE (NEGATIVE) Influenza Type B Ag NEGATIVE (NEGATIVE) RSV (PCR) NEGATIVE (Negative) SARS-CoV-2 (PCR) NEGATIVE (NEGATIVE) 03/17/22 03/17/22 Range/Units 15:30 15:30 WBC 6.6 (4.0-10.5) x10^3/uL RBC 3.59 L (4.1-5.4) x10^6/uL Hgb 11.5 L (12.0-16.0) g/dL Hct 37.0 (35-47) % MCV 103.1 H (78-100) fL MCH 32.0 (26-32) pg MCHC 31.1 L (32-36) g/dL RDW 15.0 H (11.5-14.0) % Plt Count 322 (150-450) x10^3/uL MPV 9.5 (7.5-11.0) fL Gran % 70.5 H (36.0-66.0) % Immature Gran % (Auto) 0.3 (0.00-0.4) % Nucleat RBC Rel Count 0.0 (0.00-0.1) % Eos # (Auto) 0.07 (0-0.5) x10^3/uL Immature Gran # (Auto) 0.02 (0.00-0.03) x10^3u/L Absolute Lymphs (auto) 1.30 (1.0-4.6) x10^3/uL Absolute Monos (auto) 0.52 (0.0-1.3) x10^3/uL Absolute Nucleated RBC 0.00 (0.00-0.01) x10^3u/L Lymphocytes % 19.7 L (24.0-44.0) % Monocytes % 7.9 (0.0-12.0) % Eosinophils % 1.1 (0.00-5.0) % Basophils % 0.5 (0.0-0.4) % Absolute Granulocytes 4.65 (1.4-6.9) x10^3/uL Basophils # 0.03 (0-0.4) x10^3/uL Sodium 138 (137-145) mmol/L Potassium 5.4 H (3.5-5.1) mmol/L Chloride 102 (98-107) mmol/L Carbon Dioxide 32 H (22-30) mmol/L Anion Gap 10.3 (5-15) MEQ/L BUN 28 H (7-17) mg/dL Creatinine 0.93 (0.52-1.04) mg/dL Estimated GFR > 60.0 ML/MIN Glucose 106 (74-106) mg/dL Calcium 9.5 (8.4-10.2) mg/dL Total Bilirubin 1.10 (0.2-1.3) mg/dL AST 49 H (14-36) U/L ALT 9 (0-35) U/L Alkaline Phosphatase 106 (38-126) U/L Troponin I (0.000-0.034) ng/mL Serum Total Protein 7.4 (6.3-8.2) g/dL Albumin 4.0 (3.5-5.0) g/dL Urinalys Dipstick Clnc Urine Color (YELLOW) Urine Appearance (CLEAR) Urine pH (5-6) Ur Specific Clubb (1.005-1.025) POC Urine Protein Conf (Negative) Urine Ketones (NEGATIVE) Urine Nitrite (NEGATIVE) Urine Bilirubin (NEGATIVE) Urine Urobilinogen (0-1) mg/dL Urine Leukocytes (NEGATIVE) Urine WBC (Auto) (0-5) /HPF Urine RBC (Auto) (0-2) /HPF U Epithel Cells (Auto) (FEW) /HPF Urine Bacteria (Auto) (NEGATIVE) /HPF Urine RBC (0-5) Aguilar/ul Urine Mucus (Auto) (NEGATIVE) /HPF Ur Culture Indicated? Urine Glucose (NEGATIVE) mg/dL Influenza Type A Ag (NEGATIVE) Influenza Type B Ag (NEGATIVE) RSV (PCR) (Negative) SARS-CoV-2 (PCR) (NEGATIVE) - Progress Progress: improved Counseled pt/family regarding: lab results, diagnosis, need for follow-up, rad results - Departure Departure Disposition: Home Clinical Impression: UTI (urinary tract infection) due to Enterococcus, Parkinson disease Incontinence of urine Qualifiers: Urinary Incontinence type: unspecified incontinence Qualified Code(s): R32 - Unspecified urinary incontinence Condition: Stable Critical Care Time: No Referrals: WENDY OWUSU [Primary Care Provider] - Follow up/PCP as directed Instructions: Urinary Tract Infection, Adult (DC), Urinary Incontinence (DC) Additional Instructions: Discharge/Care Plan JASPREET ORTIZ was seen on 03/17/22 in the Emergency Room. The patient was counseled regarding Diagnosis,Lab results, Imaging studies, need for follow up and when to return to the Emergency Room. Prescriptions given: Discharge Note I have spoken with the patient and/or caregivers. I have explained the patient's condition, diagnosis and treatment plan based on the information available to me at this time. I have answered the patient's and/or caregiver's questions and addressed any concerns. The patient and/or caregivers have as good understanding of the patient's diagnosis, condition and treatment plan as can be expected at this point. The vital signs have been stable. The patient's condition is stable and appropriate for discharge from the emergency department. The patient will pursue further outpatient evaluation with the primary care physician or other designated or consulting physician as outlined in the discharge instructions. The patient and/or caregivers are agreeable to this plan of care and follow-up instructions have been explained in detail. The patient and/or caregivers have received these instruction. The patient/and or caregivers are aware that any significant change in condition or worsening of symptoms should prompt an immediate return to this or the closest emergency department or call 911. JASPREET ORTIZ was seen on 03/17/22 n the Emergency Room. At that time you were treated for an emergent condition, during your visit Laboratory, Radiology and/or other procedures may have been ordered. It is very important that you follow-up with your Primary Care Physician WENDY OWUSU within the next 24-48 hours to review your Emergency Room visit and the final results of testing that was ordered. Some test results such as Urine Cultures, Blood Cultures, and other cultures if ordered will not be finalized for 24-48 hours. If you do not have a Primary Care Provider please call the medical records department at [phone] ext [phone] to obtain a copy of your results or you may sign into our patient portal to obtain these results by visiting us @ [email or web address] and completing the following steps: 1. Click on the Patient Portal link 2. Click the Patient Self Enrollment Link to complete the enrollment form and entering your 3. Once the enrollment form is completed you will receive an email with a temporary ID and password at the email address you provided. 4. Next choose a user name and password. Your user name must be at least 4 characters long and your password must be at least 4 characters long. 5. Choose a security question from the list and provide your answer to the question. If you already have signed into the Health Portal you may access your Health Care Information 29/04 by the following steps: 1. Login to our website @ [email or web address] 2. Enter your original user name and password. FAQS The [facility] Health Portal is an online tool that contains your Lab Results, Radiology Reports, Visit History, Discharge Instructions and Health Summary Lab and Radiology Results will not be available for 72 hours on the portal. The Portal is a secure site, passwords are encryted and URLs are re-written so they cannot be copied and pasted. You and authorized family members are the only ones who can access your Portal. Also there is a timeout feature that protects your information if you leave the Portal page open. If you have technical difficulty please use the Contact Us link on the page this will allow you to submit any questions you have regarding the Portal or you may contact the Medical Record Department at [phone] ext [phone]. Prescriptions: Ciprofloxacin [Cipro 500 MG] 500 mg PO BID #10 tablet
[2022-03-17] MEDS ORDERED: Sodium Chloride 0.9% 1000 ML 0 ML ONE (15:46)
[2022-03-17] MEDS ORDERED: Sodium Chloride 0.9% 1000 ML 1,000 ML ONE (15:49)
[2022-03-17 15:54] LABS: Absolute Neutrophil Ct (ANC) 4.65 x10^3/uL (1.4-6.9); Basophil (Absolute #) 0.03 x10^3/uL (0-0.4); Eosinophil % 1.1 % (0.00-5.0); Eosinophil (Absolute #) 0.07 x10^3/uL (0-0.5); Hemoglobin 11.5 g/dL (12.0-16.0); Lymphocytes % 19.7 % (24.0-44.0); Mean Cell Volume 103.1 fL (78-100); Mean Corpuscular Hgb Concent. 31.1 g/dL (32-36); Mean Platelet Volume 9.5 fL (7.5-11.0); Monocyte (Absolute #) 0.52 x10^3/uL (0.0-1.3); Monocytes % 7.9 % (0.0-12.0); Neutrophil % 70.5 % (36.0-66.0); Platelet Count 322 x10^3/uL (150-450); Red Blood Count 3.59 x10^6/uL (4.1-5.4); White Blood Count 6.6 x10^3/uL (4.0-10.5)
[2022-03-17 16:00] LABS: ALKALINE PHOSPHATASE 106 U/L (38-126); ANION GAP 10.3 MEQ/L (5-15); BLOOD UREA NITROGEN 28 mg/dL (7-17); CHLORIDE 102 mmol/L (98-107); Calcium 9.5 mg/dL (8.4-10.2); Carbon Dioxide 32 mmol/L (22-30); Creatinine 1 0.93 mg/dL (0.52-1.04); EST GLOMERULAR FILTRATION RATE > 60.0 ML/MIN; Glucose 106 mg/dL (74-106); Potassium 5.4 mmol/L (3.5-5.1); SGOT/AST 49 U/L (14-36); SGPT/ALT 9 U/L (0-35); SODIUM 138 mmol/L (137-145); Total Protein 7.4 g/dL (6.3-8.2)
[2022-03-17 16:10] LABS: Bacteria FEW /HPF (NEGATIVE); Mucus SLIGHT /HPF (NEGATIVE)
[2022-03-17 16:19] LABS: Appearance CLEAR (CLEAR); Bilirubin NEGATIVE (NEGATIVE); Glucose NEGATIVE (NEGATIVE); Ketones TRACE (NEGATIVE); Ph 6.5 (5-6); Protein,Urine Dip TRACE (Negative); RBC TRACE-INTACT Ery/ul (0-5); Specific Gravity 1.015 (1.005-1.025)
[2022-03-17 16:20] LABS: Nitrite NEGATIVE (NEGATIVE); Urine Cultured Indicated? YES; Urobilinogen 1 mg/dL (0-1)
[2022-03-17 16:23] LABS: Dipstick done @ ? MAIN LAB
[2022-03-17 16:32] LABS: INFLUENZA A NEGATIVE (NEGATIVE); INFLUENZA B NEGATIVE (NEGATIVE); RESPIRATORY SYNCTIAL VIRUS NEGATIVE (Negative); SARS-CoV-2 Xpert Express NEGATIVE (NEGATIVE)
[2022-03-17] MEDS ORDERED: ROCEPHIN 1 Gm-D5w 50 ml Bag** 1 G/50 ML IVPB IV STA (16:50)
[2022-03-17] MEDS ORDERED: ROCEPHIN 1 Gm-D5w 50 ml Bag** 1 G/50 ML IVPB IV ONE (16:52)
[2022-03-17 17:34] VITALS: BP 136/62; PULSE 60; O2SAT 99
--- NOTE | 2022-03-17 20:01 | XRAY ---
Indication: Weakness and back pain. Comparison: July 15, 2021. Portable chest remains hyperinflated and clear. Heart not enlarged again with right pacemaker. Bony thorax intact again with osteopenia and degenerative changes. Impression: Continued nonacute hyperinflated chest with chronic features.
== END 2022-03-17 17:20 | disposition home or self-care (01) ==
LOC: ED 14:38
DX: N39.0 Urinary tract infection, site not specified (principal); B95.2 Enterococcus as the cause of diseases classified elsewhere; G20 Parkinson's disease; R32 Unspecified urinary incontinence; R53.1 Weakness; M53.3 Sacrococcygeal disorders, not elsewhere classified; R41.0 Disorientation, unspecified; Z79.899 Other long term (current) drug therapy; Z20.828 Contact with and (suspected) exposure to other viral communicable diseases
CPT/HCPCS: 0241U; 36415; 71045; 80053; 81015; 84484; 85025; 87086; 93005; 96365; 99284; J0696